=== PATIENT | male | born 1975 | race Caucasian/White ===

== ENCOUNTER 2018-06-02 21:23 | Inpatient (IN) | payer OTHER ==
[~2018-06-02] VITALS: Ht 172.7 cm; Wt 77.1 kg
--- NOTE | 2018-06-02 21:31 | NUR ---
PT TAKEN TO BED 3
[2018-06-02 21:34] VITALS: BP 148/99
--- NOTE | 2018-06-02 21:35 | NUR ---
PT PRESENTS TO ED WITH C/O ABDOMINAL PAIN. PT STATED PAIN START THIS AFTERNOON WITH N/V X3. DENIES PMH. PT AAO X4, GCS 15, ABLE TO SPEAK WITH FULL COMPLETE SENTENCES. PUPILS PERR;A 3/3 MM. UNABLE TO AMBULATED AT THIS TIME. DUE TO SEVERE PAIN. RESPIRATIONS EVEN AND UNLABORED, TACHYPNEA 40'S, O2 SAT 100%. SKIN WAR,/PINK/DRY, +PMSC. ABDOMEN FIRM, GARDING, HYPOACTIVE BOWEL SOUND X4. BLIND HOOKER SR, BP WNL. DR. AVITIA MADE AWARE OF PT STATUS. WILL CONTINUE TO MONITOR
--- NOTE | 2018-06-02 21:52 | NUR ---
Dr. Díaz evaluating patient at bedside.
[2018-06-02] MEDS ORDERED: ONDANSETRON 4 MG/2 ML VIAL IVP ONE (22:00)
[2018-06-02] MEDS ORDERED: MORPHINE SULFATE 2 MG/ML SYR IVP ONE (22:00)
[2018-06-02 22:11] LABS: HEMATOCRIT 50.5 % (36-52); HEMOGLOBIN 17.1 g/dL (12.0-18.0); MEAN CORPUSCULAR HEMOGLOBIN 30 pg (27-31); MEAN CORPUSCULAR HGB CONC 34 g/dL (33-37); MEAN CORPUSCULAR VOLUME 88.6 fL (80-94); PLATELET COUNT (AUTO) 289 K/uL (140-450); RED BLOOD CELL COUNT(AUTO) 5.69 MIL/uL (4.20-6.10); RED CELL DISTRIBUTION WIDTH 12.8 % (11.6-13.7)
--- NOTE | 2018-06-02 22:14 | NUR ---
PT TAKEN TO CT
[2018-06-02 22:22] LABS: ANION GAP 19.2 (8-16); CARBON DIOXIDE 23.1 mmol/L (21-32); CREATININE 1.1 mg/dL (0.7-1.3); POTASSIUM 3.3 mmol/L (3.5-5.1)
[2018-06-02 22:26] LABS: LYMPHOCYTES % (MANUAL) 0 % (20-46); MONOCYTES % (MANUAL) 3 % (5-12)
--- NOTE | 2018-06-02 22:29 | NUR ---
PT BACK FROM CT. STATED PAIN NOT RELIEVED, ADORE WHITLEY MADE AWARE
[2018-06-02 22:30] LABS: PROTHROMBIN TIME 12.2 secs (10.8-13.4)
[2018-06-02 22:36] LABS: ALBUMIN 4.4 g/dL (3.4-5.0); TOTAL BILIRUBIN 4.8 mg/dL (0.0-1.0)
[2018-06-02] MEDS ORDERED: NACL 0.9% 2,500 ML IV ONE (22:40)
[2018-06-02] MEDS ORDERED: KETAMINE 10 MG/ML UD SYR **ER IVP ONE (22:40)
[2018-06-02] MEDS ORDERED: CLINDAMYCIN 900 MG in DEXTROSE 5% 100 ML IV ONE (22:40)
[2018-06-02] MEDS ORDERED: MIDAZOLAM 2 MG/2 ML VIAL IVP ONE (22:50)
[2018-06-02] MEDS ORDERED: CLINDAMYCIN 900 MG/6 ML VIAL IV ONE (22:53)
--- NOTE | 2018-06-02 23:07 | NUR ---
PT UNABLE TO URINATE AT THIS TIME. NO UA SPECIMEN COLLECT. DR. AVITIA MADE AWARE
[2018-06-02] MEDS ORDERED: fentaNYL 0.05 MG/ML VIAL IVP ONE (23:15)
[2018-06-02] MEDS ORDERED: DOCUSATE SODIUM 100 MG GELCAP PO PRN (23:15)
[2018-06-02] MEDS ORDERED: NACL 0.9% 500 ML IV ONE (23:15)
[2018-06-02] MEDS ORDERED: ACETAMINOPHEN 325 MG TAB PO PRN (23:15)
[2018-06-02] MEDS ORDERED: ONDANSETRON 4 MG/2 ML VIAL IM/IVP PRN (23:15)
[2018-06-02] MEDS ORDERED: NACL 0.9% 1,000 ML IV SCH (23:15)
[2018-06-02] MEDS ORDERED: NACL 0.9% 1,000 ML IV ONE (23:15)
[2018-06-02] MEDS ORDERED: fentaNYL 0.05 MG/ML VIAL ONE (23:22)
[2018-06-02] MEDS ORDERED: KETOROLAC 30 MG/ML VIAL IVP PRN (23:25)
--- NOTE | 2018-06-02 23:31 | NUR ---
PT GCS 15, PT DESATURATED WHILE SLEEPING, PLACED ON O2 2L/M. PAIN RELIEVED AT THIS TIME. VSS, WILL CONTINUE TO MONITOR
[2018-06-03] MEDS ORDERED: KETOROLAC 30 MG/ML VIAL IM SCH
[2018-06-03] MEDS ORDERED: PIPERACILLIN/TAZOBACTAM 3.375 GM in DEXTROSE 5% 50 ML IV SCH ×2
[2018-06-03 00:01] LABS: CHOL/HDL RATIO 4.2 (1-4.5); FREE T4 (FREE THYROXINE) 1.42 ng/dL (0.76-1.46); MAGNESIUM 1.9 mg/dL (1.8-2.4); PHOSPHORUS 2.3 mg/dL (2.5-4.9); THYROID STIMULATING HORMONE 1.14 uIU/mL (0.34-3.74)
[2018-06-03] MEDS: MORPHINE SULFATE 2 MG/ML SYR IVP PRN ×3 (00:03→10:21)
[2018-06-03] MEDS ORDERED: PIPERACILLIN/TAZOBACTAM 3.375 GM VIAL IV ONE ×2 (00:12→04:56)
--- NOTE | 2018-06-03 00:16 | NUR ---
Patient will be admitted to care of . Admited to TELE. Will go to room 111B. Belongings list completed. Report to TANIKA ARITA.
--- NOTE | 2018-06-03 00:30 | NUR ---
ADMITTED THIS 42 YEAR OLD MALE FROM ER PER SANDRA WITH CC OF ABDOMINAL PAIN X1 DAY, ASSESSMENT DONE, VITAL SIGNS SLIGHTLY ELEVATED, DENIES CHEST PAIN, COMPLAINING OF ABDOMINAL PAIN 8/10, WILL MEDICATE PRN, ABDOMEN TENDER TO PALPATION, POSITIVE BOWEL SOUNDS, DR LIAO AT BEDSIDE TALKING TO PT AND FAMILY, MAINTAINED ON NPO EXCEPT MEDS ORDERED, ZOSYN IVPB INFUSING, PT ORIENTED TO ROOM AND CALL LIGHT, PLAN OF CARE DISCUSSED BY DR LIAO WITH PT AND , SAFETY MEASURES IN PLACE, CALL LIGHT WITHIN REACH.
[2018-06-03 00:40] VITALS: BP 157/100
[2018-06-03 01:21] LABS: BARBITURATE, URINE NEG. ng/ml (NEG <=200); BENZODIAZEPINE, URINE POS. ng/mL (NEG <=200); CANNABINOID, URINE POS. ng/mL (NEG <=50); COCAINE, URINE NEG. ng/mL (NEG <=300); OPIATE, URINE NEG. ng/mL (NEG <=2000); PHENCYCLIDINE SCREEN,URINE NEG. ng/mL (NEG <=25)
[2018-06-03 01:52] LABS: APPEARANCE,URINE CLEAR (CLEAR); BLOOD, URINE NEGATIVE (NEGATIVE); COLOR,URINE YELLOW (YELLOW); LEUKOCYTE ESTERASE ,URINE NEGATIVE (NEGATIVE); NITRITE, URINE NEGATIVE (NEGATIVE); PH,URINE 6.5 (5.0-9.0); UGLUCOSE 2+ (NEGATIVE)
[2018-06-03 01:54] LABS: BILIRUBIN,URINE SMALL (NEGATIVE)
[2018-06-03 01:55] LABS: RBC,URINE 0-5 (RARE) /HPF (0-5); WBC,URINE 0-5 (RARE) /HPF (0-5)
[2018-06-03] MEDS ORDERED: HYDROmorphone 1 MG/ML AMP IVP SCH (02:00)
[2018-06-03] MEDS ORDERED: LORazepam 2 MG/ML VIAL IVP SCH (02:00)
--- NOTE | 2018-06-03 02:19 | NUR ---
PT SLEEPING AFTER ATIVAN WAS GIVEN, K-RIDER 20 MEQ STARTED FOR K LEVEL OF 3.3, PT SLEEPING, NO SIGNS OF RESP DISTRESS, MONITORED CLOSELY.
[2018-06-03] MEDS ORDERED: KCL 20 MEQ/WATER INJ PREMIX 100 ML IV SCH (02:30)
[2018-06-03] MEDS: DEXT 5% /NACL 0.9% 1,000 ML IV SCH ×3 (03:03→15:25)
--- NOTE | 2018-06-03 03:20 | NUR ---
PT AWAKE COMPLAINING OF ABDOMINAL PAIN, MEDICATED PRN WITH DILAUDID IVP ORDERED, IVF CHANGED TO D5 NS AT 150ML/H, MONITORED CLOSELY.
[2018-06-03 03:30] VITALS: BP 145/92
[2018-06-03] MEDS ORDERED: PIPERACILLIN/TAZOBACTAM 3.375 GM in DEXTROSE 5% 50 ML IV ONE (05:00)
--- NOTE | 2018-06-03 06:00 | NUR ---
PT COMPLAINING OF PAIN, MEDICATED PRN WITH MORPHINE IVP, PT VOIDED FREELY USING URINAL WITH 300ML LIGHT BRADLEY COLORED URINE OUTPUT, IVF INFUSING WELL, MONITORED CLOSELY.
[2018-06-03 07:07] LABS: BASOPHILS # (AUTO) 0.1 K/uL (0.00-0.22); BASOPHILS % (AUTO) 0.4 % (0.0-2.0); HEMATOCRIT 46.1 % (36-52); HEMOGLOBIN 15.4 g/dL (12.0-18.0); LYMPHOCYTES # (AUTO) 0.5 K/uL (2.0-11.5); LYMPHOCYTES % (AUTO) 4.2 % (20.5-51.1); MEAN CORPUSCULAR HEMOGLOBIN 30 pg (27-31); MEAN CORPUSCULAR HGB CONC 33 g/dL (33-37); MEAN CORPUSCULAR VOLUME 90.9 fL (80-94); MONOCYTES # (AUTO) 0.8 K/uL (0.8-1.0); MONOCYTES % (AUTO) 6.4 % (1.7-9.3); NEUTROPHILS # (AUTO) 11.5 K/uL (1.8-7.7); PLATELET COUNT (AUTO) 221 K/uL (140-450); RED BLOOD CELL COUNT(AUTO) 5.07 MIL/uL (4.20-6.10); RED CELL DISTRIBUTION WIDTH 13.1 % (11.6-13.7); WHITE BLOOD COUNT (AUTO) 12.9 K/uL (4.8-10.8)
[2018-06-03 07:12] LABS: MAGNESIUM 1.7 mg/dL (1.8-2.4); PHOSPHORUS 3.5 mg/dL (2.5-4.9)
[2018-06-03 07:16] LABS: ANION GAP 15.2 (8-16); CARBON DIOXIDE 22.6 mmol/L (21-32); CREATININE 0.8 mg/dL (0.7-1.3); POTASSIUM 3.8 mmol/L (3.5-5.1)
--- NOTE | 2018-06-03 07:20 | NUR ---
PT AWAKE, NO SIGNS OF DISTRESS, BEDSIDE REPORT GIVEN TO RN ZEENAT FOR CONTINUITY OF CARE.
--- NOTE | 2018-06-03 07:21 | NUR ---
RECEIVED BEDSIDE REPORT FROM PM NURSE TANIKA. PT DROWSY, BUT VERBALLY RESPONSIVE. RESPIRATIONS EVEN & NONLABORED. CALL LIGHT WITHIN REACH.
[2018-06-03] MEDS: KETOROLAC 30 MG/ML VIAL IM SCH ×3 (07:44→21:02)
[2018-06-03] MEDS: HYDROcodone/APAP 7.5/325 MG 1 TAB PO PRN ×2 (07:55→15:25)
[2018-06-03 08:00] VITALS: BP 147/99
[2018-06-03] MEDS: SODIUM PHOS / POTASSIUM PHOS 1 PKT PDR PO SCH ×2 (08:58→21:03)
--- NOTE | 2018-06-03 08:58 | NUR ---
PATIENT HAS BEEN SCREENED AND CATEGORIZED HIGH NUTRITION RISK. PATIENT WILL BE SEEN WITHIN 1-2 DAYS OF ADMISSION. 06/03/18 06/04/[address]
--- NOTE | 2018-06-03 11:21 | NUR ---
DR DUVALL AT BEDSIDE SPEAKING WITH PT & FAMILY. PT ALERT, SITTING UP IN BED, IRRITABLE WITH GAURDING TO ABD, RESPIRATIONS EVEN & NONLABORED. CALL LIGHT WITHIN REACH. DR DUVALL NOTIFIED OF PERSISTENT ABD PAIN.
[2018-06-03 12:00] VITALS: BP 138/90
[2018-06-03] MEDS: HYDROmorphone 1 MG/ML AMP IVP PRN ×3 (12:07→22:22)
--- NOTE | 2018-06-03 12:23 | NUR ---
06/03/18 RD INITIAL ASSESSMENT COMPLETED PLEASE REFER TO NUTRITION ASSESSMENT UNDER CARE ACTIVITY FOR ESTIMATED NUTRITIONAL NEEDS. 1. CONTINUE NPO DIET, UNTIL MEDICALLY APPROPRIATE TO BEGIN NUTRITION. 2. WHEN/IF PATIENT MEDICALLY STABLE TO BEGIN NUTRITION, CONSIDER ADVANCE DIET TOLERATED TO REGULAR. 3. WHEN/IF PATIENT MEDICALLY STABLE TO BEGIN NUTRITION, CONSIDER PROVIDING ENSURE MAX PROTEIN QID. 4. RD TO FOLLOW-UP 3-5 DAYS, MODERATE RISK PATO ROBB RD
[2018-06-03 16:00] VITALS: BP 137/95
[2018-06-03] MEDS: LACTATED RINGERS 1,000 ML IV SCH (16:49)
--- NOTE | 2018-06-03 18:00 | NUR ---
DR HEMPHILL AT BEDSIDE ASSESSING PT. PT IS DROWSY, RESPONDS APPROPRIATELY TO QUESTIONS, RESPIRATIONS EVEN & NONLABORED IN ROOM AIR. LEFT AC IV INTACT WITH ONGOING LR @ 125ML/HR, RIGHT AC IV INTACT & ASYMPTOMATIC. CALL LIGHT WITHIN REACH.
--- NOTE | 2018-06-03 19:25 | NUR ---
OBTAINED CONSENT FROM PT FOR ERCP WITH SPHINCTERECTOMY & STENTING/STONE REMOVAL. PT VERBALIZED UNDERSTANDING OF PROCEDURE. BEDSIDE REPORT GIVEN TO PM NURSE JORGE.
--- NOTE | 2018-06-03 19:26 | NUR ---
RECEIVED BEDSIDE REPORT FROM AM NURSE.PT AWAKE ALERT,O X 4. ON TELE. PT IN PAIN 02/04 WILL MEDICATE. VERBALLY RESPONSIVE. RESPIRATIONS EVEN & NONLABORED. CALL LIGHT WITHIN REACH.
[2018-06-03 20:00] VITALS: BP 125/81
--- NOTE | 2018-06-03 21:00 | NUR ---
DR. LEY WITH PT AT BEDSIDE.
--- NOTE | 2018-06-03 22:10 | NUR ---
ENDORSED PT TO ICU. ON LR AT 125ML/HR. IN PAIN AT 02/04. PER DR. LEY, AND DR. LIAO PT @ ICU FOR PAIN MGT.
--- NOTE | 2018-06-03 22:28 | NUR ---
RECEIVED REPORT FROM SCHEDULER CONVEYOR RN, JORGE, FOR CONTINUITY OF CARE. PT IS AAOX4, PAIN OF 8/10 IN ABDOMINAL AREA, DILAUDED 1MG GIVEN IV PUSH. DENIES NAUSE/NUMBNESS AND TINGLING. PT IS ON ROOM AIR, ST ON AUTOPSY PATHOLOGIST, VSS, AFEBRILE WITH TEMP 98.2, DC=833/76, HR 108-115, RR=24, O2 SAT=96%.LUNG SOUND CLEAR ON BILATERAL UPPER AND LOWER LOBES, BOWEL SOUNDS ACTIVE. NPO STATUS EXCEPT FOR MEDS.FULL CODE, NKA. CONTINENT OF BOWEL AND BLADDER. SKIN IS INTACT AND NORMAL IN COLOR. 18 GAUGE PIV ON BOTH RIGHT AC AND LEFT AC. LEFT AC INFUSING LR AT 125 ML/HR. FAMILY AT BEDSIDE. DX WITH PANCREATITIS AND SEVERE SEPSIS. CALL LIGHT WITHIN REACH HOB ELEVATED ABOVE 30 DEG. PT ABLE TO ASSIST IN REPOSITIONING.
--- NOTE | 2018-06-03 23:45 | NUR ---
PT SLEEPING, BUT EASILY AROUSABLE. STATED PAIN IS REDUCED RATING 4/10. DG=154/80, HR 106-111, O2 SAT=96-98%, RR=24.
[2018-06-04] VITALS (10 sets, daily range): BP systolic 121–145; BP diastolic 68–98
[2018-06-04] MEDS: PIPER/TAZO 3.375GM/D5W PREMIX 50 ML IV SCH ×4 (00:04→17:12)
[2018-06-04] MEDS: LACTATED RINGERS 1,000 ML IV SCH ×4 (00:04→20:51)
[2018-06-04] MEDS: HYDROcodone/APAP 7.5/325 MG 1 TAB PO PRN (00:55)
--- NOTE | 2018-06-04 01:00 | NUR ---
PT IS AWAKE IN BED, HOB ELEVATED ABOVE 45 DEG. NORCO GIVEN, PT RATED PAIN 4-5/10, SAYS INTENSITY OF PAIN "COMES AND GOES". BP 131/87, PX=457, O2 SAT=98, RR=22. ABX ADMINISTRATION COMPLETED, LR INFUSING AT 125ML/HR INTO LEFT AC 18 GAUGE.
--- NOTE | 2018-06-04 01:17 | NUR ---
PT SITTING UP AT BEDSIDE, LEGS DANGLING. URINE OUTPUT OF 175ML. URINE IS RED-ORANGE IN COLOR, MALODOROUS. HR =120-125 WHILE SITTING. PT STATED PAIN IS WORSE WHEN LAYING DOWN AND ROTATING ON THE SIDES, PAIN ALLEVIATED BY SITTING UP TEMPORARILY.
--- NOTE | 2018-06-04 01:20 | NUR ---
PT LAYING BACK IN BED, CURRENTLY HR= 115-118 BPM. ELEVATED THE LOWER LEGS IN BED, PT IN SUPINE POSITION HOB ELEVATED 30 DEG.
--- NOTE | 2018-06-04 02:29 | NUR ---
SITTING UP ON SIDE OF BED, LEGS DANGLING, PT STATED PAIN SUBSIDES WHEN SITTING UP. AFEBRILE, 98.3 BUT PT STATED HE FEELS WARM. COLD WASHCLOTH PLACED ON BACK OF NECK. BP 136/80, HR= 120-123, O2 SATS = 95, RR=24.
--- NOTE | 2018-06-04 02:39 | NUR ---
PT AWAKE, LAYING IN BED SUPINE POSITION. DJ=381. PT STATED PAIN IS TOLERABLE.
--- NOTE | 2018-06-04 02:57 | NUR ---
PT STATED THAT HE FEELS PHLEGM BUILDING UP IN HIS THROAT HE IS LAYING IN BED. PT CURRENTLY SITTING UP ON SIDE OF BED. DENIES CHEST PAIN, BUT SITES MILD PAIN IN THROAT. PT REQUESTS BENADRYL OR DECONGESTANT STATING THATS WHAT HE USUALLY TAKES AT HOME. CALLED DR. LIAO AND UPDATED ON PT CONDITION, AWAITING NEW ORDER(S).
[2018-06-04] MEDS ORDERED: guaiFENesin 600 MG TABER PO PRN (03:00)
[2018-06-04] MEDS: HYDROmorphone 1 MG/ML AMP IVP PRN ×6 (03:12→21:41)
--- NOTE | 2018-06-04 04:22 | NUR ---
ORAL CARES/MOUTH MOISTURIZER PROVIDED TO PT AT BEDSIDE. PT RATES PAIN AT 5/10 AFTER DILAUDED ADMINISTRATION.
--- NOTE | 2018-06-04 05:10 | NUR ---
LAB A BESIDE TO COLLECT BLOOD.
[2018-06-04 05:27] LABS: BASOPHILS % (AUTO) 0.1 % (0.0-2.0); EOSINOPHILS % (AUTO) 0.1 % (0.0-4.0); HEMATOCRIT 47.7 % (36-52); HEMOGLOBIN 15.8 g/dL (12.0-18.0); LYMPHOCYTES # (AUTO) 1.2 K/uL (2.0-11.5); LYMPHOCYTES % (AUTO) 7.2 % (20.5-51.1); MEAN CORPUSCULAR HEMOGLOBIN 30 pg (27-31); MEAN CORPUSCULAR HGB CONC 33 g/dL (33-37); MEAN CORPUSCULAR VOLUME 90.4 fL (80-94); MONOCYTES % (AUTO) 6.5 % (1.7-9.3); NEUTROPHILS # (AUTO) 13.8 K/uL (1.8-7.7); NEUTROPHILS % (AUTO) 86.1 % (42.2-75.2); PLATELET COUNT (AUTO) 220 K/uL (140-450); RED BLOOD CELL COUNT(AUTO) 5.28 MIL/uL (4.20-6.10); RED CELL DISTRIBUTION WIDTH 13.5 % (11.6-13.7)
--- NOTE | 2018-06-04 06:21 | NUR ---
RECEIVED CALL FROM DR. DUVALL OF NEW ORDER TO INCREASE LR TO 150ML/HR, CARRIED OUT.
[2018-06-04 06:30] LABS: POTASSIUM 3.8 mmol/L (3.5-5.1)
[2018-06-04 06:31] LABS: ANION GAP 17.3 (8-16); CARBON DIOXIDE 22.5 mmol/L (21-32); CREATININE 0.8 mg/dL (0.7-1.3)
[2018-06-04 06:39] LABS: MAGNESIUM 1.5 mg/dL (1.8-2.4); PHOSPHORUS 2.8 mg/dL (2.5-4.9)
--- NOTE | 2018-06-04 06:56 | NUR ---
SPOKE WITH DR. DUVALL INFORMED OF ABNORMAL LABS, ELEVATED HR GOING FROM 120'S to 140's. INFORMED PT IS IN PAIN AND WILL GIVE DILAUDED. NO NEW ORDERS AT THIS TIME.
[2018-06-04 07:04] LABS: TOTAL BILIRUBIN 5.1 mg/dL (0.0-1.0)
[2018-06-04 07:05] LABS: ALBUMIN 2.8 g/dL (3.4-5.0)
--- NOTE | 2018-06-04 07:36 | NUR ---
PROVIDED BESIDE REPORT TO MORNING SHIFT RN, ENDORSED DILAUDED GIVEN 0710 PAIN 04/06, UPDATED ON PT CONDITION OF HR RUNNING SINUS TACHYCARDIC 120-130'S, HIGHEST OF NP=711. LR RUNNING AT 150ML/HR. AND ERCP SCHEDULED FOR 0830AM. PT AAO4.
--- NOTE | 2018-06-04 07:40 | NUR ---
RECEIVED REPORT FROM EMERGENCY VETERINARY ASSISTANT RN. PT IS RESTING ON BED, AAOX4. ABLE TO MAKE NEEDS KNOWN AND FOLLOWS COMMANDS. TEMP 99.4. SINUS TACHYCARDIA ON MONITOR. S1 S2 HEARD. PT IS ON ROOM AIR. NO SOB NOTED. BREATHING EVEN AND UNLABORED. LUNGS SOUND CLEAR BILATERALLY. ABDOMEN ROUND, DISTENDED. C/O ABDOMINAL PAIN 3/10. PT STATED PAIN IS TOLERABLE AT THIS TIME. PERIPHERAL IVS G18 TO RIGHT AND LEFT ANTECUBITAL ASYMPTOMATIC, PATENT AND INTACT, PT IS RECEIVING IV FLUID LR AT 150 ML/HR. PT IS CONTINENT BOWEL AND BLADDER. SKIN IS INTACT, DRY AND WARM TO TOUCH. ABLE TO MOVE ALL EXTREMITIES. BED IN LOWEST POSITION AND CALL LIGHT WITHIN REACH. WILL CONTINUE TO MONITOR.
--- NOTE | 2018-06-04 07:55 | NUR ---
DR. VILLEDA AND RESIDENT GROUP IN TO SEE PT. WILL FOLLOW UP ON ORDERS.
[2018-06-04] MEDS ORDERED: MIDAZOLAM 2 MG/2 ML VIAL ONE (08:11)
[2018-06-04] MEDS ORDERED: fentaNYL 0.05 MG/ML VIAL ONE (08:12)
[2018-06-04 08:13] LABS: HEPATITIS A ANTIBODY IGM Negative (Negative); HEPATITIS B CORE AB TOTAL Negative (Negative); HEPATITIS B SURFACE ANTIBODY Non Reactive (.); HEPATITIS B SURFACE ANTIGEN Negative (Negative)
[2018-06-04] MEDS ORDERED: PROPOFOL 200 MG/20 ML VIAL IV ONE (08:20)
[2018-06-04 08:44] LABS: BILIRUBIN,DIRECT 2.8 mg/dL (0.0-0.3)
[2018-06-04] MEDS: SODIUM PHOS / POTASSIUM PHOS 1 PKT PDR PO SCH (09:00)
--- NOTE | 2018-06-04 09:05 | NUR ---
PT BACK FROM OR, ERCP DONE. PT IS STABLE, TEMP 99.2, VSS. PT IS RESTING, NO S/SX OF ACUTE DISTRESS AT THIS TIME.
--- NOTE | 2018-06-04 09:15 | NUR ---
FAMILY AT BEDSIDE. UPDATES GIVEN ON PT'S CONDITION. PT IS RESTING COMFORTABLY. WILL CONTINUE TO MONITOR.
--- NOTE | 2018-06-04 09:34 | NUR ---
PT SEEN BY DR. LEY. WILL FOLLOW UP WITH NEW ORDERS.
--- NOTE | 2018-06-04 09:40 | NUR ---
RESIDENT PHYSICIAN DR. DUVALL IN TO SEE AND EXAMINE PT, AWARE OF INCREASED HR 125. HOLD PO MEDS FOR NOW PER DR. DUVALL. WILL FOLLOW UP WITH NEW ORDERS.
[2018-06-04] MEDS ORDERED: PROBIOTIC SCREEN 1 EA MISC MC PRN (11:25)
--- NOTE | 2018-06-04 11:50 | NUR ---
PT C/O DRY THROAT AND REQUESTED ICE CHIPS. DR. DUVALL MADE AWARE. PER DR. DUVALL, KEEP PT STILL NPO, NO ICE CHIPS AT THIS TIME. PT AND FAMILY MADE AWARE, VERBALIZED UNDERSTANDING.
--- NOTE | 2018-06-04 12:00 | NUR ---
PT'S TEMP 100.0. COOLING MEASURES IN PLACE. WILL CONTINUE TO MONITOR.
[2018-06-04] MEDS ORDERED: diphenhydrAMINE 50 MG/ML VIAL IVP SCH (13:05)
--- NOTE | 2018-06-04 13:15 | NUR ---
BENADYL 25MG GIVEN ORDERED.
--- NOTE | 2018-06-04 15:00 | NUR ---
PT C/O EPIGASTRIC PAIN OF 10/10 AND REQUESTED MORE FREQUENT PAIN MEDICATION. RESIDENT PHYSICIAN DR. RUIZ MADE AWARE OF PT'S REQUEST. WILL FOLLOW UP ON ORDERS.
[2018-06-04] MEDS: HYDROmorphone 1 MG/ML AMP IVP SCH ×2 (15:08→15:15)
--- NOTE | 2018-06-04 15:08 | NUR ---
PRN DILAUDID ADMINISTERED ORDERED.
--- NOTE | 2018-06-04 15:15 | NUR ---
RESIDENT PHYSICIAN DR. RUIZ ORDERED ADDITIONAL DILAUDID 1 MG X1. MEDICATION NOT ADMINISTERED. PT STATED HE FEELS BETTER AND PAIN IS REDUCED TO 5/10 AND DOES NOT NEED AN ADDITIONAL DOSE AT THIS TIME. PT REQUESTED IF MEDICATION FREQUENCY CAN BE REDUCED TO Q3H. DR. RUIZ MADE AWARE. WILL FOLLOW UP WITH NEW ORDERS.
--- NOTE | 2018-06-04 15:40 | NUR ---
EKG BEING DONE AT BEDSIDE. NO S/SX OF ACUTE DISTRESS NOTED AT THIS TIME. WILL CONTINUE TO MONITOR.
--- NOTE | 2018-06-04 15:45 | NUR ---
DR. RUIZ MADE AWARE OF EKG RESULT BY CHARGE NURSE. WILL FOLLOW UP ON ORDERS.
[2018-06-04] MEDS ORDERED: LORazepam 2 MG/ML VIAL IVP PRN ×2 (15:55)
--- NOTE | 2018-06-04 16:56 | NUR ---
HR IS IN HIGH 130'S ALTHOUGH PT IS SLEEPING AT THIS TIME. DR. RUIZ MADE AWARE. TROPONIN <0.017. WILL FOLLOW UP AND CONTINUE TO MONITOR. Addendum: 06/04/18 at 1719 by Oneil Pradhan RN DR. RUIZ AWARE OF PT'S TEMP 100.1.
--- NOTE | 2018-06-04 17:30 | NUR ---
DR. RUIZ ORDERED METOPROLOL IV FOR INCREASED HR. PHARMACY UNAVAILABLE AT THIS TIME AND MEDICATIONS UNVERIFIED. CREDIT COLLECTION ASSOCIATE MS. HAIR MADE AWARE. WILL FOLLOW UP.
[2018-06-04] MEDS ORDERED: METOPROLOL 5 MG/5 ML VIAL IVP SCH (18:30)
--- NOTE | 2018-06-04 18:40 | NUR ---
PT IS ASLEEP AT THIS TIME. CONSENT FOR CT ABD/PELVIS W/ CONTRAST SIGNED BY AT BEDSIDE. DR. BELTRE IN TO SEE AND EXAMINE PT, AND TALKED TO PT'S .
[2018-06-04] MEDS ORDERED: MAG SULF 2000 MG/WATER PREMIX 100 ML IV SCH (19:00)
--- NOTE | 2018-06-04 19:10 | NUR ---
RECEIVED REPORT FROM MORNING SHIFT RN. PATIENT AAOX4, VERBALLY RESPONSIVE, ABLE TO MAKE NEEDS KNOWN AND FOLLOWS COMMANDS. TEMP 101.0. APPLIED COOLING MEASURE. SINUS TACHYCARDIA ON MONITOR WITH HR 123 NOTED. BILATERAL LUNGS SOUND CLEAR, NO SOB NOTED. PATIENT ON O2 2L/M VIA NC, O2 SAT 95% NOTED. NO ACUTE DISTRESS NOTED. ROUND ABDOMEN NOTED. CHRONIC ABDOMINAL PAIN 4/10 NOTED. PERIPHERAL IV TO RIGHT AND LEFT AC, ASYMPTOMATIC, PATENT AND INTACT, RUNNING WITH IV FLUID LR AT 150 ML/HR. SKIN IS INTACT, DRY AND WARM TO TOUCH. HOB ELEVATED, BED IN LOWER POSITION. CALL LIGHT WITHIN REACH. WILL CONTINUE TO MONITOR.
--- NOTE | 2018-06-04 19:30 | NUR ---
REPORT GIVEN TO TELEGRAPH MECHANIC RN FOR CONTINUITY OF CARE.NO ACUTE DISTRESS NOTED AT THIS TIME.
--- NOTE | 2018-06-04 19:30 | NUR ---
AT BEDSIDE TO CHECK THE PATIENT, WILL FOLLOW ORDERS.
[2018-06-04] MEDS: ACETAMINOPHEN 325 MG SUPP RC PRN (19:36)
[2018-06-04] MEDS ORDERED: LORazepam 2 MG/ML VIAL IM/IVP PRN (20:30)
--- NOTE | 2018-06-04 21:00 | NUR ---
PATIENT URINATED TO URINAL AT THIS TIME, 100ML ORANGE COLOR URINE NOTED. DENIES PAIN ON URINATION NOTED.
--- NOTE | 2018-06-04 21:40 | NUR ---
ADMINISTERED PRN PAIN MEDICATION ORDERED. ABDOMINAL PAIN 9/10 NOTED.
--- NOTE | 2018-06-04 21:45 | NUR ---
DR. CASTANO AT BEDSIDE TO ASSESS THE PATIENT, WILL FOLLOW THE ORDER.
--- NOTE | 2018-06-04 23:20 | NUR ---
PATIENT TO CT SCAN WITH CONTRAST. NO ACUTE RESP DISTRESS AT THIS TIME.
[2018-06-05] VITALS (12 sets, daily range): BP systolic 117–153; BP diastolic 69–97
--- NOTE | 2018-06-05 00:15 | NUR ---
RECEIVED PHONE CALL FROM [facility], PATIENT WILL BE ON HIDA TEST ON 0900 AM TODAY. FOR THE TEST, PATIENT NEEDS TO BE NPO, NO OPIOID MED FROM NOW. NOTIFIED DR. BELTRE.
[2018-06-05] MEDS: PIPER/TAZO 3.375GM/D5W PREMIX 50 ML IV SCH (00:19)
[2018-06-05] MEDS ORDERED: ALBUTEROL SULFATE/IPRATROPIU 3 ML SOL IH PRN (00:40)
--- NOTE | 2018-06-05 01:00 | NUR ---
ADMINISTERED SCHEDULED IV ABX. WILL CONTINUE TO MONITOR.
--- NOTE | 2018-06-05 01:08 | NUR ---
ATTEMPTED ABG TWICE. COMMUNICATED TO DR BELTRE. DR ASKED TO REATTEMPT IN THE MORNING.
[2018-06-05] MEDS ORDERED: LORazepam 2 MG/ML VIAL IVP SCH ×3 (02:00→07:00)
[2018-06-05] MEDS: LACTATED RINGERS 1,000 ML IV SCH ×4 (02:35→23:55)
[2018-06-05] MEDS ORDERED: metroNIDAZOLE 500 MG/NS PREMIX 100 ML IV SCH ×3 (03:00→13:00)
[2018-06-05] MEDS ORDERED: LEVOFLOXACIN 750 MG/D5W PREMIX 150 ML IV SCH (03:00)
--- NOTE | 2018-06-05 03:10 | NUR ---
ADMINISTERED FLAGYL ORDERED. NO REACTION NOTED. Addendum: 06/05/18 at 0433 by Janet Child RN AT BEDSIDE TO CHECK THE PATIENT, WILL FOLLOW ORDERS.
[2018-06-05] MEDS ORDERED: ACETAMINOPHEN 650 MG SUPP RC ONE ×2 (03:26→20:25)
[2018-06-05] MEDS: ACETAMINOPHEN 325 MG SUPP RC PRN ×2 (03:29→21:35)
--- NOTE | 2018-06-05 03:30 | NUR ---
ADMINISTERED TYLENOL 650MG SUPPOSITORY ORDERED FOR TEMP ABOVE 100.2. APPLIED COOLING MEASURE. WILL CONTINUE TO MONITOR.
--- NOTE | 2018-06-05 04:00 | NUR ---
ADMINISTERED LEVAQUIN IVPB ORDERED, NO REACTION NOTED.
[2018-06-05 05:12] LABS: HEMATOCRIT 41.2 % (36-52); HEMOGLOBIN 13.8 g/dL (12.0-18.0); MEAN CORPUSCULAR HEMOGLOBIN 30 pg (27-31); MEAN CORPUSCULAR HGB CONC 34 g/dL (33-37); MEAN CORPUSCULAR VOLUME 89.9 fL (80-94); PLATELET COUNT (AUTO) 205 K/uL (140-450); RED BLOOD CELL COUNT(AUTO) 4.59 MIL/uL (4.20-6.10); WHITE BLOOD COUNT (AUTO) 14.4 K/uL (4.8-10.8)
[2018-06-05] MEDS ORDERED: KETOROLAC 15 MG/ML VIAL ONE (05:34)
[2018-06-05 06:00] LABS: ANION GAP 14.9 (8-16); CARBON DIOXIDE 24.5 mmol/L (21-32); CREATININE 0.9 mg/dL (0.7-1.3); POTASSIUM 3.4 mmol/L (3.5-5.1)
[2018-06-05] MEDS ORDERED: KETOROLAC 15 MG/ML VIAL IVP SCH (06:00)
--- NOTE | 2018-06-05 06:00 | NUR ---
PATIENT COMPLAINT ABOUT PAIN, NOTIFIED DR. BELTRE, RECEIVED TORADOL 15MG IVP. ADMINISTERED MEDICATION ORDERED.
[2018-06-05 06:03] LABS: PHOSPHORUS 1.7 mg/dL (2.5-4.9)
[2018-06-05 06:11] LABS: LYMPHOCYTES % (MANUAL) 7 % (20-46); MONOCYTES % (MANUAL) 6 % (5-12)
--- NOTE | 2018-06-05 07:30 | NUR ---
RECEIVED REPORT FROM COSTUME DESIGN TEACHER RN AT BEDSIDE. PATIENT AAOX4, ABLE TO FOLLOW COMMANDS AND MAKE NEEDS KNOWN. NO S/S OF DISTRESS, CLEAR LUNG SOUNDS LEATHA., ON RA, O2 SAT 94%. SINUS TACHYCARDIA ON MONITOR WITH HR 129 NOTED. SOFT ROUND ABDOMEN WITHIN ACTIVE BOWEL SOUNDS, SEVERE PAIN TO ABDOMEN NOTED, 10/10, WILL MEDICATED. CONTIENT WITH B&B'S, ABLE TO USE BSC, SKIN IS INTACT, WARM AND DRY TO TOUCH, PERIPHERAL IV TO RIGHT AND LEFT AC, 18GA, PATENT, RUNNING WITH LR AT 100 ML/HR. ABLE TO MOVE ALL EXTREMITIES, EXPLAINED POC TO PT, PT VERBALIZED UNDERSTANDING, HOB ELEVATED, SAFETY MEASURE IN PLACE, CALL LIGHT WITHIN REACH. WILL CONTINUE TO MONITOR.
[2018-06-05] MEDS: KETOROLAC 15 MG/ML VIAL IVP PRN (08:37)
[2018-06-05] MEDS: PANTOPRAZOLE 40 MG INJ VIAL IVP SCH (08:42)
[2018-06-05] MEDS ORDERED: LACTOBACILLUS RHAMNOSUS GG 1 EACH CAP PO SCH (09:00)
[2018-06-05] MEDS ORDERED: NACL 0.9% 1,000 ML IV SCH ×2 (09:00→13:00)
--- NOTE | 2018-06-05 09:00 | NUR ---
DR. MADISON CALL AND ORDERED 1000ML/OF 0.9% NS BOLUS AND INCREASE LR IV TO 150ML/HR. GIVEN ORDERED.
--- NOTE | 2018-06-05 09:39 | NUR ---
PLACED 2L N/C WITH H20 PER DR DUVALL
--- NOTE | 2018-06-05 09:45 | NUR ---
PT REFUSED TO PUT O2 ON, RISK AND BENEFIT EXPLAINED, O2 SAT AT 95% AT THIS TIME.
--- NOTE | 2018-06-05 10:00 | NUR ---
PT IS OFF UNIT FOR HIDA SCAN
[2018-06-05] MEDS ORDERED: POTASSIUM PHOSPHATE 15 MM in NACL 0.9% 250 ML IV SCH (10:30)
--- NOTE | 2018-06-05 11:01 | NUR ---
DR. CÁRDENAS CAME IN TO SEE PT AT [facility] SCAN ROOM, ORDERED CT, WILL FOLLOW UP WITH ORDERS.
[2018-06-05] MEDS: HYDROmorphone 1 MG/ML AMP IVP PRN ×4 (11:32→21:55)
--- NOTE | 2018-06-05 11:45 | NUR ---
DR. MIX CALLED HE ODER TO HO CT SCAN OF PANCREASE AFTER HE LEARN THAT AV WHITLEY ORDER NM HIDA SCAN AND BEING DONE.
--- NOTE | 2018-06-05 12:00 | NUR ---
PT IS AT [facility], RN AT BEDSIDE, NO S/S OF DISTRESS, PAIN MEDICATION GIVEN, PT IS ASLEEP, VSS.
--- NOTE | 2018-06-05 12:50 | NUR ---
PT IS DONE WITH HIDA SCAN, PER CHARGE NURSE SUMAN, DR. MURILLO TOLD HER TO HOLD THE CT SCAN, DR. DUVALL TRYING TO GET HOLD OF DR. MURILLO TO CONFIRM THE ORDER, BUT COULD NOT GET IN TOUCH AT THIS TIME, SO HE SAID TO HOLD THE CT UNTIL FURTHER ORDER. PT IS BACK TO ROOM NOW.
--- NOTE | 2018-06-05 13:45 | NUR ---
SEEN BY DR. Nerissa HOLLAND AT BED SIDE. HE DISCUS WITH DR. COLEMAN REGARDING THE CARE AND TREATMENT.
--- NOTE | 2018-06-05 13:46 | NUR ---
DR. HOLLAND CAME IN TO SEE PATIENT AT BEDSIDE, DR. DUVALL AT BEDSIDE WELL, WILL FOLLOW UP WITH NEW ORDERS.
--- NOTE | 2018-06-05 14:00 | NUR ---
PT GETTING ANXIOUS ATTIVAN GIVEN ORDERED.
--- NOTE | 2018-06-05 14:33 | NUR ---
CONSENT SIGNED BY PATIENT FOR CT GUIDED DRAINAGE OF GALLBLADDER AND CT W/WITHOUT CONTRAST.
--- NOTE | 2018-06-05 16:04 | NUR ---
TIME OUT FOR ULTRA SOUND GUIDED DRAINAGE OF GALLBLADDER AT BEDSIDE, DR. KOHLER , JUAN J COREY AT BEDSIDE.
[2018-06-05] MEDS ORDERED: LIDOCAINE 2% 1000 MG/50 ML VIAL INJ ONE (16:15)
[2018-06-05] MEDS ORDERED: LIDOCAINE MPF 2% 100 MG/5 ML VIAL INJ SCH (16:30)
--- NOTE | 2018-06-05 16:59 | NUR ---
US GUIDED DRAINAGE OF GALLBLADDER COULD NOT DONE AT THIS TIME, DR. KOHLER WILL DO FLUOROSCOPY INSTEAD.
--- NOTE | 2018-06-05 17:15 | NUR ---
PT IS OFF UNIT TO CT ROOM VIA BED FOR FLUOROSCOPY GUIDED DRAINAGE OF GALLBLADDER. RN AND TECH AT BEDSIDE.
--- NOTE | 2018-06-05 17:30 | NUR ---
TIME OUT FOR FLUOROSCOPY GUIDED DRAINAGE OF GALLBLADDER.
[2018-06-05] MEDS: LORazepam 2 MG/ML VIAL IVP SCH ×2 (18:12→23:55)
--- NOTE | 2018-06-05 18:45 | NUR ---
PT IS BACK TO UNIT, VSS, DRAINAGE BAG IN PLACE. Addendum: 06/05/18 at 1918 by Ami Rooney RN DR. THADDEUS GILLESPIE FLUSH 10ML OF NS TO THE DRAINAGE TUBE DAILY TO KEEP THE TUBE OPEN. DR. BELTRE MADE AWARE.
--- NOTE | 2018-06-05 18:50 | NUR ---
DR. GUTIERRES CAME IN TO SEE PT AT BEDSIDE, NO NEW ORDER AT THIS TIME.
--- NOTE | 2018-06-05 19:18 | NUR ---
REPORT GIVEN TO FLOWER MACHINE OPERATOR NURSE FOR CONTINUE OF CARE, PT IS ASLEEP IN BED, NO S/S OF DISTRESS. FAMILY MEMBERS AT BEDSIDE.
--- NOTE | 2018-06-05 19:25 | NUR ---
RECEIVED REPORT FROM MORNING SHIFT RN. PATIENT AAOX4, VERBALLY RESPONSIVE, ABLE TO MAKE NEEDS KNOWN AND FOLLOWS COMMANDS. TEMP 100.7. APPLIED COOLING MEASURE. SINUS TACHYCARDIA ON MONITOR WITH HR 122 NOTED. BILATERAL LUNGS SOUND CLEAR, NO SOB NOTED. PATIENT ON O2 2L/M VIA NC, O2 SAT 95% NOTED. NO ACUTE DISTRESS NOTED. ROUND ABDOMEN NOTED, DRAINAGE BAG FOR GALLBLADDER, NO DRAINAGE COMMING OUT TO BAG BUT IN THE TUBE, MINIMAL RED CLAER DRAINAGE NOTED. CHRONIC ABDOMINAL PAIN 5/10 NOTED. PERIPHERAL IV TO RIGHT AC AND LEFT FORE ARM 18 G, ASYMPTOMATIC, PATENT AND INTACT, RUNNING WITH IV FLUID LR AT 150 ML/HR. SKIN IS INTACT, DRY AND WARM TO TOUCH. HOB ELEVATED, BED IN LOWER POSITION. CALL LIGHT WITHIN REACH. WILL CONTINUE TO MONITOR.
--- NOTE | 2018-06-05 20:30 | NUR ---
ADMINISTERED TYLENOL 650MG SUPPOSITORY ORDERED FOR ABOVE TEMP 100.2F.
--- NOTE | 2018-06-05 20:45 | NUR ---
TAKE THE PATIENT TO CT ABDOMEN AND PELVIC WITH/ WITHOUT CONTRAST.
[2018-06-05] MEDS ORDERED: MEROPENEM 500 MG in NACL 0.9% 50 ML IV SCH (21:00)
[2018-06-05] MEDS: MEROPENEM 1,000 MG in NACL 0.9% 100 ML IV SCH (21:34)
--- NOTE | 2018-06-05 22:00 | NUR ---
ADMINISTERED PRN PAIN MEDICATION ORDERED. PATIENT NOTIFIED TO NURSE, ABDOMINAL PAIN 10/10. WILL CONTINUE TO MONITOR.
--- NOTE | 2018-06-05 22:30 | NUR ---
PATIENT HAD BM, MODERATE AMOUNT BROWN WATERY STOOL NOTED.
[2018-06-06] VITALS (12 sets, daily range): BP systolic 115–151; BP diastolic 55–89
--- NOTE | 2018-06-06 00:10 | NUR ---
ADMINISTERED SCHEDULED ATIVAN ORDERED. PATIENT HAD BM, SMALL AMOUNT BROWN WATERY STOOL NOTED. STILL ST ON THE MONITOR WITH HR 120-130. WILL CONTINUE TO MONITOR.
[2018-06-06] MEDS: HYDROmorphone 1 MG/ML AMP IVP PRN ×4 (01:05→23:41)
--- NOTE | 2018-06-06 01:10 | NUR ---
ADMINISTERED PRN PAIN MEDICATION ORDERED. DRAINAGE BAG FIR GALLBLADDER FLUSHED WITH NS 10ML. NO PAIN NOTED. MINIMAL SEROSANGUINEOUS FLUID WITH SEDIMENT NOTED.
--- NOTE | 2018-06-06 03:00 | NUR ---
PATIENT IS IN SLEEP, NO ACUTE DISTRESS NOTED. STILL ST ON THE MONITOR WITH HR 125 NOTE.
[2018-06-06] MEDS ORDERED: ACETAMINOPHEN 650 MG SUPP RC ONE (04:02)
[2018-06-06] MEDS: ACETAMINOPHEN 325 MG SUPP RC PRN (04:03)
--- NOTE | 2018-06-06 04:10 | NUR ---
ADMINISTERED PRN PAIN MEDICATION ORDERED. WILL CONTINUE TO MONITOR. Addendum: 06/06/18 at 0643 by Janet Child RN AND ADMINISTERED TYLENOL 650MG SUPPOSITORY GIVEN FOR FEVER.
[2018-06-06] MEDS: LORazepam 2 MG/ML VIAL IVP SCH ×2 (05:48→12:25)
[2018-06-06] MEDS: MEROPENEM 1,000 MG in NACL 0.9% 100 ML IV SCH ×3 (05:48→20:18)
[2018-06-06] MEDS: LACTATED RINGERS 1,000 ML IV SCH ×3 (05:54→17:27)
[2018-06-06] MEDS: KETOROLAC 15 MG/ML VIAL IVP PRN ×5 (06:18→20:19)
--- NOTE | 2018-06-06 06:20 | NUR ---
PATIENT REPORTED ABDOMINAL PAIN 9/10, ADMINISTERED PRN TORADOL ORDERED. WILL CONTINUE TO MONITOR.
[2018-06-06 06:30] LABS: HEMATOCRIT 32.6 % (36-52); HEMOGLOBIN 10.9 g/dL (12.0-18.0); MEAN CORPUSCULAR HEMOGLOBIN 30 pg (27-31); MEAN CORPUSCULAR HGB CONC 33 g/dL (33-37); MEAN CORPUSCULAR VOLUME 90.5 fL (80-94); PLATELET COUNT (AUTO) 200 K/uL (140-450); RED CELL DISTRIBUTION WIDTH 13.1 % (11.6-13.7); WHITE BLOOD COUNT (AUTO) 11.8 K/uL (4.8-10.8)
[2018-06-06 07:06] LABS: LYMPHOCYTES % (MANUAL) 12 % (20-46); MONOCYTES % (MANUAL) 15 % (5-12)
[2018-06-06 07:29] LABS: MAGNESIUM 2.1 mg/dL (1.8-2.4); PHOSPHORUS 1.9 mg/dL (2.5-4.9)
--- NOTE | 2018-06-06 07:30 | NUR ---
RECEIVED PT FROM PM NURSE, PT SLEEPING BUT AROUSABLE. BEDSIDE MONITOR SHOWS [facility] ROOM AIR, NO S/S OF RESPIRATORY DISTRESS NOTED. LUNG SOUNDS CLEAR. PT HAS DRAINAGE BAG , MINIMAL BLOODY SECRETION NOTED. ABD LARGGE, PT ABLE TO MOVE ALL HIS EXTREMITIES. PT HAS IV TO RIGHT HAND RUNNING LR AT 150 MLS/HR. POC EXPLAINED TO PT. PT VERBALIZED UNDERSTANDING. TEMP 98.6 TEMP, PT DENIES PAIN AT THIS MOMENT. HOB ELEVATED 30 DEGREES WITH LOW BED POSITION, WILL CONTINUE TO MONITOR.
--- NOTE | 2018-06-06 08:00 | NUR ---
FLUSHED DRAINAGE BAG WITH 10 MLS NS.
[2018-06-06 08:23] LABS: CARBON DIOXIDE 24.2 mmol/L (21-32); CREATININE 0.9 mg/dL (0.7-1.3); POTASSIUM 3.2 mmol/L (3.5-5.1); TOTAL BILIRUBIN 1.5 mg/dL (0.0-1.0)
[2018-06-06] MEDS: PANTOPRAZOLE 40 MG INJ VIAL IVP SCH (08:32)
[2018-06-06] MEDS: CLINICAL MONITORING MC SCH (09:01)
--- NOTE | 2018-06-06 09:46 | NUR ---
ASSISTED PT TO BEDSIDE COMMODE, PT HAD BM 200 MLS OILY LIGHT GREEN BROWNISH LOOSE BM.
[2018-06-06] MEDS ORDERED: POTASSIUM CHLORIDE 40 MEQ, LIDOCAINE 1% 25 MG in NACL 0.9% 250 ML IV SCH (10:00)
[2018-06-06 10:57] LABS: LACTATE DEHYDROGENASE 324 IU/L (121-224)
--- NOTE | 2018-06-06 11:02 | NUR ---
CM NOTE RECEIVED ORDER FOR TRANSFER FOR HIGHER LEVEL OF CARE. SPOKE WITH JANIE OF [facility] PH# [phone] WHO REQUESTED FOR FACESHEET, H&P AND LATEST PROGRESS NOTE TO BE FAXED TO HER AT [phone]. FAXED INFORMATION REQUESTED. SPOKE WITH WATCH CRYSTAL GRINDER SAUMYA OF [facility] PH# [phone] WHO REQUESTED FACESHEET, H&P AND LATEST PROGRESS NOTE TO BE FAXED TO HER AT [phone]. FAXED INFORMATION REQUESTED. SPOKE WITH IMAN OF [facility] PH# [phone] WHO SAID THAT THEY ARE CLOSED FOR TRANSFERS AT THIS TIME, NO BEDS AVAILABLE. IMAN ALSO SAID THAT SHE CANNOT EVEN PUT THE PATIENT ON THEIR WAIT LIST AT THIS TIME. Addendum: 06/06/18 at 1104 by Chela Tate CM PATIENT CURRENTLY A SELF PAY
--- NOTE | 2018-06-06 12:19 | NUR ---
DR. LEY IN TO CHECK PT. DR. LEY STATED IT IS OK TO GIVE PT ICE CHIPS.WILL FOLLOW UP.
[2018-06-06] MEDS ORDERED: MORPHINE SULFATE 2 MG/ML SYR IVP PRN (13:00)
--- NOTE | 2018-06-06 13:45 | NUR ---
PT HAD LIGHT BRADLEY URINE 200 MLS
--- NOTE | 2018-06-06 14:44 | NUR ---
CM NOTE PER SAUMYA, [employer] OF , NO BEDS AVAILABLE AT THIS TIME. PER JANIE OF [facility] PH# [phone], THEY DON'T HAVE A BED AVAILABLE AT THIS TIME BUT THEY MIGHT HAVE A BED AT A LATER TIME. I GAVE HER THE NUMBER TO THE NURSING STATION WHERE PATIENT IS IN CASE IT HAPPENS AT A LATER TIME TODAY.
--- NOTE | 2018-06-06 15:39 | NUR ---
RECEIVED PHONE CALL FROM [facility], DOCTOR IN [facility].
[2018-06-06] MEDS ORDERED: MENTHOL/ZINC OXIDE 113 GM TUBE TP SCH (17:20)
--- NOTE | 2018-06-06 17:25 | NUR ---
PT C/O PAIN, TRIED TO WALK AT BEDSIDE. NOTIFIED DR. WILD.
[2018-06-06] MEDS: MENTHOL/METHYL 10%-15% 114 GM TUBE TP SCH (18:13)
--- NOTE | 2018-06-06 18:51 | NUR ---
PT STATED PAIN RELIVED. RESTING IN BED AT THIS MOMENT. NO S/S OF RESPIRATORY DISTRESS NOTED. FAMILY AT BEDSIDE.
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
[2018-06-06] MEDS: ACETAMINOPHEN 650 MG SUPP RC PRN (19:47)
--- NOTE | 2018-06-06 19:47 | NUR ---
PT NOTED WITH A FEVER. TEMPERATURE WAS 100.9; WILL GIVE MEDICATION ORDERED.
--- NOTE | 2018-06-06 19:50 | NUR ---
CALLED DR. LIAO TO INFORM HIM THAT FAMILY IS REQUESTING TO SPEAK WITH HIM REGARDING THE PT'S CONDITION.
[2018-06-06] MEDS ORDERED: LORazepam 2 MG/ML VIAL IM/IVP PRN (20:15)
--- NOTE | 2018-06-06 20:17 | NUR ---
DR. LIAO AT BEDSIDE TO SPEAK WITH THE FAMILY. INFORMED HIM TOO REGARDING PT'S REQUEST FOR A MEDICATION TO HELP HIM SLEEP. PER DR. LIAO HE WILL ORDER ATIVAN FOR THE PT.
--- NOTE | 2018-06-06 20:30 | NUR ---
PT ON 2 L NC. SPO2 94%. NO SOB OR DISTRESS NOTED. FAMILY AT BEDSIDE. WILL CONTINUE TO MONITOR. Addendum: 06/06/18 at 2030 by Denisa Queen RT CLEAR BILATERAL BREATH SOUNDS
[2018-06-06] MEDS ORDERED: LORazepam 2 MG/ML VIAL IVP SCH (21:00)
--- NOTE | 2018-06-06 21:10 | NUR ---
CALLED DR. LIAO, UPATED ON PT CONDITION PT RATING PAIN 8/10 HR IN 120'S, TORADOL AND TYLENOL GIVEN. DR. LIAO TO UPDATE ORDERS.
--- NOTE | 2018-06-06 21:20 | NUR ---
DR. GUTIERRES AT BEDSIDE TO SEE PT.
--- NOTE | 2018-06-06 21:25 | NUR ---
CALLED AFTER HOURS PHARMACY, REGARDING, NEW ORDER FOR DILAUDED THAT NEEDS VERIFICATION.
[2018-06-06] MEDS ORDERED: HYDROmorphone 1 MG/ML AMP IVP SCH (21:30)
--- NOTE | 2018-06-06 22:00 | NUR ---
RECHECKED PT'S TEMPERATURE, CURRENTLY 99.8
--- NOTE | 2018-06-06 23:25 | NUR ---
REPORT GIVEN TO JUAN J BRADSHAW FOR CONTINUITY OF CARE. ENDORSED REGARDING THE MONITORING OF THE DRAINAGE AND TEMPERATURE OF PT. ALSO NOTIFIED HER REGARDING THE NEXT PAIN MEDICATION. PT COMPLAINING OF PAIN BUT IN STABLE CONDITION AT THIS TIME.
[2018-06-07] VITALS (13 sets, daily range): BP systolic 98–142; BP diastolic 58–92
[2018-06-07] MEDS: LACTATED RINGERS 1,000 ML IV SCH ×3 (01:09→14:31)
[2018-06-07] MEDS: KETOROLAC 15 MG/ML VIAL IVP PRN ×6 (01:27→20:52)
--- NOTE | 2018-06-07 02:45 | NUR ---
TEMP: 99.4, MINIMAL LOOSE BLACK STOOL, URINE OUTPUT 700ML. PT MOTHER AT BEDSIDE.
--- NOTE | 2018-06-07 03:11 | NUR ---
CALLED LUNCHROOM MOTHER PHARMACIST-ROSEMARIE, INFORMED OF SLEEPING PILL NEEDS PHARM VERIFICATION.
[2018-06-07] MEDS: ZOLPIDEM 5 MG TAB PO PRN (03:20)
--- NOTE | 2018-06-07 03:43 | NUR ---
CALLED DR. LIAO, INFORMED PT HAVING 10/10 PAIN, STATED OK TO GIVE SCHEDULED DILAUDED EARLY, WILL CARRY OUT.
[2018-06-07] MEDS: HYDROmorphone 1 MG/ML AMP IVP PRN ×6 (03:45→22:56)
[2018-06-07] MEDS: MEROPENEM 1,000 MG in NACL 0.9% 100 ML IV SCH ×3 (04:34→20:51)
--- NOTE | 2018-06-07 04:45 | NUR ---
FLUSHED DRAINAGE BAG WITH 10 CC NS, NO OUTPUT AT THIS TIME.
--- NOTE | 2018-06-07 05:35 | NUR ---
PT AT BEDSIDE USING URINAL.
--- NOTE | 2018-06-07 06:40 | NUR ---
DR. ALZCANO CAME IN TO SEE PATIENT, UPDATED ON PATIENT CONDITIONS. SPOKE WITH DR. BLANC REGARDING PAIN MEDIATION THAT IS DC'D, DR. LAZCANO WILL UPDATE WITH NEW ORDERS.
--- NOTE | 2018-06-07 07:00 | NUR ---
RECEIVED PT FROM AUGUSTINE ARITA. PT. IS AWAKE C/O ABD. PAIN. IV INFUSING AT 180 ML/HR VIA RT WRIST IV SITE. BENEFITS SPECIALIST SHOWS ST HR IN THE 130'S.
--- NOTE | 2018-06-07 07:10 | NUR ---
PT IS AWAKE, RESTLESS, THRASHING C/O SEVERE ABDOMINAL PAIN. PT WANTS DILAUDID FOR PAIN. DR. WILD NOTIFIED.
--- NOTE | 2018-06-07 07:19 | NUR ---
DILAUDID 1 MG IVP GIVEN. RATES PAIN AT 10. POSITION OF COMFORT. BENGAY APPLIED TO LOWER BACK AREA.
--- NOTE | 2018-06-07 07:30 | NUR ---
SLEEPING SOUNDLY. HR 118 TO 123.
[2018-06-07] MEDS: PANTOPRAZOLE 40 MG INJ VIAL IVP SCH (08:16)
[2018-06-07] MEDS: ACETAMINOPHEN 650 MG SUPP RC PRN ×3 (08:23→16:55)
--- NOTE | 2018-06-07 08:23 | NUR ---
TEMP CHECKED. 101,6. TYLENOM 650 MG SUPP. GIVEN RECTALLY. TEPID SPONGE BATH GIVEN Addendum: 06/07/18 at 1126 by Imelda Arevalo RN TYLENOL NOT TYLENOM.
[2018-06-07 08:25] LABS: HEMATOCRIT 29.7 % (36-52); HEMOGLOBIN 9.7 g/dL (12.0-18.0); MEAN CORPUSCULAR HEMOGLOBIN 30 pg (27-31); MEAN CORPUSCULAR HGB CONC 33 g/dL (33-37); MEAN CORPUSCULAR VOLUME 91.3 fL (80-94); PLATELET COUNT (AUTO) 211 K/uL (140-450); RED BLOOD CELL COUNT(AUTO) 3.25 MIL/uL (4.20-6.10); RED CELL DISTRIBUTION WIDTH 13.4 % (11.6-13.7); WHITE BLOOD COUNT (AUTO) 12.8 K/uL (4.8-10.8)
[2018-06-07] MEDS: MENTHOL/METHYL 10%-15% 114 GM TUBE TP SCH (08:26)
--- NOTE | 2018-06-07 09:15 | NUR ---
DR. CASTANO HERE TO SEE AND EXAMINE PT. SPOKE TO PT AND PT'S DAD.
--- NOTE | 2018-06-07 09:30 | NUR ---
ASSISTED TO BEDSIDE COMMODE. HAD 100 ML OF LOOSE BILE COLORED STOOLS.
[2018-06-07 09:32] LABS: LYMPHOCYTES % (MANUAL) 11 % (20-46); MONOCYTES % (MANUAL) 13 % (5-12)
--- NOTE | 2018-06-07 09:45 | NUR ---
IVF DECREASED TO 100 MLS/HR.
[2018-06-07 10:00] LABS: ANION GAP 13.9 (8-16); CARBON DIOXIDE 24.3 mmol/L (21-32); CREATININE 0.8 mg/dL (0.7-1.3); POTASSIUM 3.2 mmol/L (3.5-5.1)
--- NOTE | 2018-06-07 10:00 | NUR ---
TEMP 99 F.
[2018-06-07 10:01] LABS: PHOSPHORUS 2.2 mg/dL (2.5-4.9)
--- NOTE | 2018-06-07 11:02 | NUR ---
CM NOTE PER JANIE OF [facility] PH# [phone], THEIR ANTISQUEAK WORKER NOT ACCEPT THE PATIENT AT THIS TIME BECAUSE PATIENT IS NOT A SURGICAL CANDIDATE AT THIS TIME. PER NANDINI OF [facility] PH# [phone], NO BEDS AVAILABLE AT THIS TIME. PER ELISEO, [facility] , PH# [phone], NO BEDS AVAILABLE AT THIS TIME. September [facility] ADMITTING DEPT PH# [phone] REQUESTED FOR FACESHEET TO BE FAXED TO HER AT [phone]. FAXED INFORMATION.
--- NOTE | 2018-06-07 12:00 | NUR ---
STATES HE FEELS BETTER TODAY. AMB. AT BEDSIDE. REMAINS IN ST. HR INCREASED WITH ACTIVITY AND PAIN.
--- NOTE | 2018-06-07 13:17 | NUR ---
MEDICATED WITH TYLENOL SUPP. 650 MG FOR TEMP OF 101.3 DEGREES F. COOLING MEASURES DONE.
--- NOTE | 2018-06-07 14:00 | NUR ---
TEMP RECHECKED 99.6.
--- NOTE | 2018-06-07 14:51 | NUR ---
CM NOTE PER SEPTEMBER OF [facility] ADMITTING DEPT PH# [phone], TO HAVE THE ATTENDING DOCTOR IN [facility] CALL THEIR PARQUETRY LAYER DOCTOR, DR. AUREA BRAY PH# [phone], TO GIVE A DOCTOR TO DOCTOR REPORT AND TO FIND OUT WHETHER PATIENT WILL BE ACCEPTED. AND IF ACCEPTED BY DR. BRAY, TO HAVE DR. BRAY CALL [facility] ADMITTING DEPT TO INFORM THEM THAT PATIENT IS BEING ACCEPTED AND THEY CAN START LOOKING FOR A BED. PER SEPTEMBER, NO BEDS AVAILABLE AT THIS TIME, BUT THEY ARE ANTICIPATING DISCHARGES AND MIGHT POSSIBLY HAVE A BED AVAILABLE AFTER 7PM. DR. DUVALL, ATTENDING PHYSICIAN, AWARE.
--- NOTE | 2018-06-07 15:00 | NUR ---
DR. LEY HERE TO SEE AND EXAMINE PT.
--- NOTE | 2018-06-07 15:59 | NUR ---
SPOKE TO SEPTEMBER AT [facility] ADMITTING OFFICE. DR. BRAY HAS NOT CALLED THEM YET RE: PT'S ADMISSION, AND THAT THEY DO NOT HAVE BEDS AVAILABLE AT THIS TIME. DR. DUVALL MADE AWARE.
--- NOTE | 2018-06-07 16:03 | NUR ---
RECEIVED A CALL FROM DR. DUVALL. HE SAID THAT DR BRAY WOULD ACCEPT THE PATIENT AT [facility]. I CALLED LEX ARITA AND INFORMED HER AND ASKED HER TO CALL [facility] TO SEE IF THEY NEEDED ANY INFORMATION FROM US.
--- NOTE | 2018-06-07 16:55 | NUR ---
TEMP 101.1 DEGREES FAHRENHEIT, TYLENOL 650 MG SUPP. GIVEN RECTALLY. COOLING MEASURES DONE.
[2018-06-07] MEDS ORDERED: KCL 20 MEQ/WATER INJ PREMIX 200 ML IV ONE (17:50)
--- NOTE | 2018-06-07 17:50 | NUR ---
DR. HOLLAND HERE TO SEE AND EXAMAINE PT. MADE AWARE OF K+ 3.2. GAVE ORDER FOR Vanessa COLLINS.
[2018-06-07] MEDS ORDERED: POTASSIUM CHLORIDE 40 MEQ, LIDOCAINE MPF 1% - 5 mL VIAL 25 MG in NACL 0.9% 250 ML IV SCH (18:30)
--- NOTE | 2018-06-07 19:00 | NUR ---
TEMP RECHECKED 100.6 DEGREES FAHRENHEIT. SLEEPING. RESP EASY AND REGULAR, ELECTRONIC INDUSTRIAL CONTROLS MECHANIC SHOWS ST HR 108/MIN. AT BEDSIDE.
--- NOTE | 2018-06-07 19:20 | NUR ---
RECEIVED REPORT FROM MORNING SHIFT RN. PATIENT AAOX4, VERBALLY RESPONSIVE, ABLE TO MAKE NEEDS KNOWN AND FOLLOWS COMMANDS. TEMP 100.2. APPLIED COOLING MEASURE. TYLENOL GIVEN BY MORNING RN. SINUS TACHYCARDIA ON MONITOR WITH HR 112 NOTED. BILATERAL LUNGS SOUND CLEAR, NO SOB NOTED. PATIENT ON ROOM AIR, DENIES ANY HARD OF BREATHING, O2 SAT 94% NOTED. NO ACUTE DISTRESS NOTED. ROUND ABDOMEN NOTED, DRAINAGE BAG FOR GALLBLADDER, MINIMAL DRAINAGE COMING OUT TO BAG. CHRONIC ABDOMINAL PAIN 5/10 NOTED. PERIPHERAL IV TO RIGHT WRIST 22G, ASYMPTOMATIC, PATENT AND INTACT, RUNNING WITH IV FLUID LR AT 100 ML/HR. SKIN IS INTACT, DRY AND WARM TO TOUCH. HOB ELEVATED, BED IN LOWER POSITION. CALL LIGHT WITHIN REACH. WILL CONTINUE TO MONITOR.
--- NOTE | 2018-06-07 21:00 | NUR ---
ADMINISTERED SCHEDULED IV ABX AND PRN PAIN MEDICATION ORDERED. ABDOMINAL PAIN 9/10 NOTED. TEMP 99.2 NOTED. WILL CONTINUE TO MONITOR.
[2018-06-08] VITALS (12 sets, daily range): BP systolic 134–176; BP diastolic 64–97
--- NOTE | 2018-06-08 | NUR ---
PATIENT HAD BM, SMALL AMOUNT DARK BROWN SOFT STOOL NOTED. STILL COMPLAINT OF ABDOMINAL PAIN 09/04. PRN DILAUDID GIVEN. NO SOB NOTED. ST WITH HR 110 TO 120 ON THE MONITOR. WILL CONTINUE TO MONITOR.
[2018-06-08] MEDS: LACTATED RINGERS 1,000 ML IV SCH (00:56)
[2018-06-08] MEDS: KETOROLAC 15 MG/ML VIAL IVP PRN ×6 (00:56→22:36)
[2018-06-08] MEDS: ZOLPIDEM 5 MG TAB PO PRN (01:08)
--- NOTE | 2018-06-08 01:10 | NUR ---
PT REPORTED THAT HE TRIED TO SLEEP BUT HE COULD NOT. ADMINISTERED PRN AMBIUN AT THIS TIME. WILL CONTINUE TO MONITOR.
--- NOTE | 2018-06-08 02:40 | NUR ---
PATIENT HAD BM, SMEAR AMOUNT DARK BROWN SOFT STOOL NOTED AND PATIENT URINATED CLEAR YELLOW URINE NOTED. ST ON THE MONITOR. ABDOMINAL PAIN 9/10 NOTED. WILL ADMINISTER PAIN MEDICATION. WILL CONTINUE TO MONITOR.
[2018-06-08] MEDS: HYDROmorphone 1 MG/ML AMP IVP PRN ×7 (02:56→23:25)
--- NOTE | 2018-06-08 04:00 | NUR ---
PATIENT RESTLESSNESS, ANXIOUS NOTED BECAUSE OF HARD TO SLEEP. ADMINISTERED PRN ATIVAN AT THIS TIME. ST NOTED. WILL CONTINUE TO MONITOR.
[2018-06-08] MEDS: MEROPENEM 1,000 MG in NACL 0.9% 100 ML IV SCH ×3 (04:18→20:08)
--- NOTE | 2018-06-08 05:30 | NUR ---
PATIENT IN ASLEEP AT THIS TIME, NO ACUTE DISTRESS NOTED. NO SOB. ST ON THE MONITOR. WILL CONTINUE TO MONITOR.
[2018-06-08 06:17] LABS: WHITE BLOOD COUNT (AUTO) 13.5 K/uL (4.8-10.8)
[2018-06-08 06:35] LABS: MEAN CORPUSCULAR HEMOGLOBIN 30 pg (27-31); MEAN CORPUSCULAR HGB CONC 33 g/dL (33-37); MEAN CORPUSCULAR VOLUME 90.5 fL (80-94); PLATELET COUNT (AUTO) 257 K/uL (140-450); RED BLOOD CELL COUNT(AUTO) 3.32 MIL/uL (4.20-6.10); RED CELL DISTRIBUTION WIDTH 12.9 % (11.6-13.7)
[2018-06-08 06:54] LABS: LYMPHOCYTES % (MANUAL) 12 % (20-46); MONOCYTES % (MANUAL) 12 % (5-12)
[2018-06-08 06:55] LABS: EOSINOPHILS % (MANUAL) 2 % (0-4)
[2018-06-08 06:59] LABS: ANION GAP 14.6 (8-16); CARBON DIOXIDE 24.4 mmol/L (21-32); CREATININE 0.8 mg/dL (0.7-1.3)
[2018-06-08 07:08] LABS: PHOSPHORUS 2.6 mg/dL (2.5-4.9)
--- NOTE | 2018-06-08 07:15 | NUR ---
RECEIVED REPORT FROM YARN MERCERIZER OPERATOR RN. PT LYING IN BED. A/O X4. ST ON MONITOR. ABLE TO MAKE NEEDS KNOWN. LUNGS CLEAR. PERIPHERAL NINE NOTED ON RIGHT WRIST. INTACT LINE LR RUNNING AT 100 ML/HR. ABDOMEN SOFT, ROUND AND TENDERNESS PRESENT. ACTIVE BOWEL SOUND. DRAINAGE NOTED ON RIGHT UPPER QUADRANT COVERED WITH DRESSING, DRAINING SEROSANGUINEOUS DRAINAGE IN SMALL AMOUNT. SKIN INTACT. KEPT HOB ELEVATED. CALL LIGHT WITHIN REACH. BED IN LOW POSITION LOCKED. WILL CONTINUE TO MONITOR.
--- NOTE | 2018-06-08 08:15 | NUR ---
PT ABLE TO DID ORAL CARE AND SPONGING INDEPENDENTLY. FATHER AT BEDSIDE. Addendum: 06/08/18 at 1054 by Enma Zuniga RN PT DID
--- NOTE | 2018-06-08 08:25 | NUR ---
PT BEING EVALUATED BY DR. CASTANO AT THIS TIME.
[2018-06-08] MEDS ORDERED: FUROSEMIDE 20 MG/2 ML VIAL IVP SCH (08:30)
[2018-06-08] MEDS ORDERED: diphenhydrAMINE 50 MG/ML VIAL IVP SCH (08:30)
--- NOTE | 2018-06-08 08:34 | NUR ---
CM NOTE RECEIVED CALL FROM [facility] PAINT ROLLER COVERMAKER DOCTOR FOR TODAY DR. BEAUCHAMP PH# [phone] WHO STATED THAT HE IS NOT ACCEPTING THE PATIENT BECAUSE THEY DO NOT HAVE A SURGEON WHO SPECIALIZES IN PANCREATIC DEBRIDEMENT OR RESECTION. RECEIVED CALL FROM JOO OF [facility] ADMITTING DEPT # [phone] WHO STATED THAT THEIR DOCTOR IS NOT ACCEPTING BECAUSE PER THEIR DR. BEAUCHAMP THE PATIENT NEEDS HIGHER LEVEL OF CARE THAN [facility].
[2018-06-08] MEDS: DEXT 5% /NACL 0.9% 1,000 ML IV SCH (08:50)
[2018-06-08] MEDS: PANTOPRAZOLE 40 MG INJ VIAL IVP SCH (08:51)
[2018-06-08] MEDS: MENTHOL/METHYL 10%-15% 114 GM TUBE TP SCH (08:52)
[2018-06-08] MEDS: CLINICAL MONITORING MC SCH (09:00)
[2018-06-08] MEDS: ACETAMINOPHEN 650 MG SUPP RC PRN (10:24)
[2018-06-08] MEDS ORDERED: POTASSIUM CHLORIDE 40 MEQ, LIDOCAINE 1% 25 MG in NACL 0.9% 250 ML IV SCH (10:30)
--- NOTE | 2018-06-08 11:22 | NUR ---
FEVER DECREASED TO 100.4 DEGREE F. WILL CONTINUE TO MONITOR.
--- NOTE | 2018-06-08 11:39 | NUR ---
ORAL TEMP CHECKED 99.2 F AT THIS MOMENT.
--- NOTE | 2018-06-08 14:08 | NUR ---
06/08/18 RD FOLLOW UP COMPLETED PLEASE REFER TO NUTRITION ASSESSMENT UNDER CARE ACTIVITY FOR ESTIMATED NUTRITIONAL NEEDS. 1. CONTINUE CLEAR LIQUID DIET WITH ENSURE CLEAR TOLERATED 2. WHEN PATIENT IS MEDICALLY STABLE CONSIDER ADVANCING DIET TOLERATED TO FULL LIQUID. 3. RD TO FOLLOW-UP 3-5 DAYS, MODERATE RISK SHANTELLE STEWART RD
[2018-06-08] MEDS: FLUTICASONE NASAL 50 MCG/ACTUATION 16 GM BTL NS SCH (15:53)
--- NOTE | 2018-06-08 17:19 | NUR ---
PT ASLEEP. CONTINUE MONITORING. ROOM AIR 94%. ST ON MONITOR. AT BEDSIDE.
--- NOTE | 2018-06-08 17:38 | NUR ---
PT NOTED WITH ELEVATED BODY TEMPERATURE UP TO 100 DEGREE F. EXTRA CLOTHES REMOVED. PROVIDING COLD SPONGING.
--- NOTE | 2018-06-08 18:47 | NUR ---
PT LEFT FOR CT, ACCOMPANIED WITH RN, DEBRIDGING MACHINE OPERATOR, RT. Addendum: 06/08/18 at 1917 by Tank Hester RN wrong entry !
--- NOTE | 2018-06-08 19:00 | NUR ---
NOTIFIED DR. LIAO PT HAS PAIN, PER , IT IS OK TO GIVE PT TORADOL AT THIS MOMENT. WILL CARRY OUT.
--- NOTE | 2018-06-08 19:35 | NUR ---
REPORT GIVEN TO REPTILE KEEPER RN FOR CONTINUITY OF CARE.
--- NOTE | 2018-06-08 20:50 | NUR ---
RECEIVED REPORT FROM AM SHIFT. PT AFEBRILE. AOX4. FOLLOWS COMMANDS. ABLE TO VERBALIZE NEEDS. LUNG SOUNDS CLEAR BILAT. ON ROOM AIR. SINUS TACH ON MONITOR. CLEAR LIQUID DIET. BOWEL SOUNDS ACTIVE X4 QUADRANTS. ABD SOFT NONDISTENDED. BLADDER NONDISTENDED. IV SITE RIGHT WRIST. NO SIGNS OF ACUTE DISTRESS. BED IN LOWEST POSITION. CALL LIGHT WITHIN REACH FAMILY AT BEDSIDE.
--- NOTE | 2018-06-08 21:25 | NUR ---
PT TAKEN TO CT. NO SIGNS OF ACUTE DISTRESS AT THIS TIME.
--- NOTE | 2018-06-08 21:38 | NUR ---
PT RETURNED FROM CT ABD W/O CONTRAST. NO SIGNS OF ACUTE DISTRESS AT THIS TIME.
--- NOTE | 2018-06-08 22:48 | NUR ---
PT TEMP 101.3. COOLING MEASURES PROVIDED.
--- NOTE | 2018-06-08 23:33 | NUR ---
ADMINISTERED DILAUDID 1MG IVP FOR 9/10 PAIN TO ABD. WILL REASSESS PAIN LEVELS.
[2018-06-09] VITALS (12 sets, daily range): BP systolic 110–152; BP diastolic 50–97
[2018-06-09] MEDS: KETOROLAC 15 MG/ML VIAL IVP PRN ×2 (01:36→05:05)
--- NOTE | 2018-06-09 02:24 | NUR ---
DR LIAO AT BEDSIDE AT THIS TIME. UPDATED ON PATIENTS CURRENT CONDITION. MADE AWARE OF PATIENT'S PLACEMENT ISSUE. WILL CONTINUE TO FOLLOW UP ADDITIONAL ORDERS.
[2018-06-09] MEDS: HYDROmorphone 1 MG/ML AMP IVP PRN ×8 (02:32→23:40)
--- NOTE | 2018-06-09 02:40 | NUR ---
PAGED DR. LIAO REGARDING 2 EPISODES OF V-TACH AND BIGEMINY. PT SHOWS NO SIGNS OF ACUTE DISTRESS AND IS RESPONSIVE. WILL CONTINUE TO FOLLOW UP ADDITIONAL ORDERS.
[2018-06-09] MEDS ORDERED: METOPROLOL 5 MG/5 ML VIAL IV SCH (02:45)
[2018-06-09] MEDS: DEXT 5% /NACL 0.9% 1,000 ML IV SCH ×2 (02:59→23:13)
--- NOTE | 2018-06-09 03:00 | NUR ---
ADMINISTERED LOPRESSOR 5G/5ML IVP FOR TACHYCARDIA
[2018-06-09] MEDS: MEROPENEM 1,000 MG in NACL 0.9% 100 ML IV SCH ×3 (04:00→20:23)
--- NOTE | 2018-06-09 04:33 | NUR ---
PT GIVEN ICE CHIPS AT THIS TIME.
--- NOTE | 2018-06-09 05:00 | NUR ---
ADMINISTERED TRAMADOL IVP. PT C/O PAIN 12/05 TO ABD.
--- NOTE | 2018-06-09 05:03 | NUR ---
LAB AT BEDSIDE AT THIS TIME
[2018-06-09 06:17] LABS: MAGNESIUM 2.1 mg/dL (1.8-2.4)
[2018-06-09 06:18] LABS: ALBUMIN 2.1 g/dL (3.4-5.0); ANION GAP 13.1 (8-16); CARBON DIOXIDE 28.7 mmol/L (21-32); CREATININE 0.8 mg/dL (0.7-1.3); POTASSIUM 3.8 mmol/L (3.5-5.1)
[2018-06-09 06:32] LABS: LD1 FRACTION 10 % (17-32); LD2 FRACTION 16 % (25-40); LD3 FRACTION 14 % (17-27); LD4 FRACTION 10 % (5-13)
[2018-06-09 06:44] LABS: HEMATOCRIT 28.8 % (36-52); HEMOGLOBIN 9.5 g/dL (12.0-18.0); MEAN CORPUSCULAR HEMOGLOBIN 30 pg (27-31); MEAN CORPUSCULAR HGB CONC 33 g/dL (33-37); MEAN CORPUSCULAR VOLUME 90.9 fL (80-94); PLATELET COUNT (AUTO) 307 K/uL (140-450); RED BLOOD CELL COUNT(AUTO) 3.17 MIL/uL (4.20-6.10); RED CELL DISTRIBUTION WIDTH 13.1 % (11.6-13.7); WHITE BLOOD COUNT (AUTO) 16.2 K/uL (4.8-10.8)
[2018-06-09 07:16] LABS: LYMPHOCYTES % (MANUAL) 14 % (20-46); MONOCYTES % (MANUAL) 7 % (5-12)
--- NOTE | 2018-06-09 07:28 | NUR ---
ENDORSED CARE TO INCOMING SHIFT FOR CONTINUITY OF CARE. NO SIGNS OF ACUTE DISTRESS NOTED.
--- NOTE | 2018-06-09 07:29 | NUR ---
RECEIVED REPORT FROM EDITORIAL ASSISTANT RN. A/O X4. ST ON MONITOR. ABLE TO MAKE NEEDS KNOWN. LUNGS CLEAR. PERIPHERAL LINE NOTED ON RIGHT WRIST. LR RUNNING AT 50 ML/HR. BRUISE NOTED ON LEFT FOREARM. ABDOMEN SOFT, ROUND AND TENDERNESS PRESENT. HYPOACTIVE BOWEL SOUND. RT GB DRAINAGE NOTED COVERED WITH DRESSING, DRAINING SEROSANGUINEOUS DRAINAGE IN SMALL AMOUNT. SKIN INTACT. DENIED PAIN. KEPT HOB ELEVATED. CALL LIGHT WITHIN REACH. BED IN LOW POSITION LOCKED. WILL CONTINUE TO MONITOR.
--- NOTE | 2018-06-09 07:50 | NUR ---
PT BRUSHED TEETH AND DID SPONGE PATH INDEPENDENTLY.
[2018-06-09] MEDS ORDERED: COMMUNICATION ORDER MC PRN (08:00)
--- NOTE | 2018-06-09 08:05 | NUR ---
RECEIVED CALL FROM DR. SINGLETON. UPDATED ABOUT RECENT LABS. ORDERED TO GIVE 2 GM CALCIUM GLUCONATE IN 100 ML NS OVER 1 HOUR IV, TYPE AND SCREEN STAT. SAID PT WILL BE SCHEDULED FOR SURGERY TOMORROW AT 0730 AM, KEEP PT NPO EXCEPT MEDS AFTER MID NIGHT. WILL CARRY OUT ORDER. PT MADE AWARE.
[2018-06-09] MEDS: CLINICAL MONITORING MC SCH (08:39)
[2018-06-09] MEDS: PANTOPRAZOLE 40 MG INJ VIAL IVP SCH (08:43)
[2018-06-09] MEDS: FLUTICASONE NASAL 50 MCG/ACTUATION 16 GM BTL NS SCH (08:44)
[2018-06-09] MEDS: MENTHOL/METHYL 10%-15% 114 GM TUBE TP SCH (08:44)
[2018-06-09] MEDS ORDERED: CALCIUM GLUCONATE 10% 2,000 MG in NACL 0.9% 100 ML IV SCH (09:00)
--- NOTE | 2018-06-09 09:10 | NUR ---
PT RESTING IN BED. PT NOTED WITH A FIB, IRREGULAR HEART RATE. DR. JUAREZ MADE AWARE. PT DENIES ANY DIZZINESS OR CHEST PAIN AT THIS TIME.
[2018-06-09] MEDS: ACETAMINOPHEN 650 MG SUPP RC PRN ×2 (09:35→16:48)
--- NOTE | 2018-06-09 11:29 | NUR ---
FEVER DECREASED TO 100.2 DEGREE F. CONTINUE ON COLD SPONGING. NO C/O PAIN AT THIS TIME. WATCHING TV.
[2018-06-09] MEDS ORDERED: CALCIUM CARBONATE 500 MG TAB.CHEW PO SCH (12:25)
--- NOTE | 2018-06-09 12:25 | NUR ---
PT C/O BURNING THROAT WHILE BURPING. DR. WILD MADE AWARE.
--- NOTE | 2018-06-09 12:33 | NUR ---
FEVER DECREASED TO 99.9. PT RESTING IN BED COMFORTABLY. NO C/O PAIN AT THIS TIME. NO ACUTE RESPIRATORY DISTRESS NOTED. ST ON MONITOR. BP WNL. 97% IN ROOM AIR.
--- NOTE | 2018-06-09 13:50 | NUR ---
DR. HOLLAND CAME IN TO SEE PT AT BEDSIDE, NO NEW ORDER AT THIS TIME.
[2018-06-09 14:25] LABS: LD5 FRACTION 50 % (4-20)
--- NOTE | 2018-06-09 17:00 | NUR ---
PT NOTED WITH FEVER 102.2. REMOVED EXTRA CLOTHES. ON COLD SPONGING. TYLENOL SUPPOSITORY ADMINISTERED ORDERED.
[2018-06-09] MEDS: CALCIUM CARBONATE 500 MG TAB.CHEW PO PRN (18:13)
--- NOTE | 2018-06-09 18:32 | NUR ---
FEVER DECREASED TO 100.2. CONTINUE ON COLD SPONGING.
--- NOTE | 2018-06-09 19:11 | NUR ---
REPORT GIVEN TO LOCUM TENENS PSYCHIATRIST RN FOR CONTINUITY OF CARE.
--- NOTE | 2018-06-09 19:12 | NUR ---
RECEIVED REPORT FROM AM SHIFT. PT AO X4. FOLLOWS COMMANDS. ABLE TO VERBALIZE NEEDS. RESPONDS TO VERBAL AND TACTILE STIMULI. ON ROOM AIR. LUNG SOUNDS CLEAR. ON CLEAR LIQUID DIET. BOWEL SOUNDS ACTIVE X 4 QUADRANTS. SINUS TACH ON MONITOR. L HAND 20G. PATENT INTACT. AMBULATORY. STEADY GAIT. NO SIGNS OF ACUTE DISTRESS AT THIS TIME. BED IN LOWEST POSITION. FAMILY AT BEDSIDE. WILL CONTINUE TO MONITOR.
--- NOTE | 2018-06-09 21:05 | NUR ---
ADMINISTERED DILAUDID 1MG IVP FOR PAIN 03/07 IN ABD. WILL CONTINUE TO MONITOR
--- NOTE | 2018-06-09 21:40 | NUR ---
DR. GUTIERRES AT BEDSIDE TO EVALUATE PT. UPDATED ON PTS CURRENT CONDITION. WILL CONTINUE TO MONITOR.
--- NOTE | 2018-06-09 23:50 | NUR ---
ADMINISTERED DILAUDID 1MG IVP AT THIS TIME. WILL REEVALUATE PAIN LEVELS.
[2018-06-10] VITALS (12 sets, daily range): BP systolic 121–148; BP diastolic 63–100
--- NOTE | 2018-06-10 00:54 | NUR ---
PT RESTING QUIETLY AT THIS TIME. NO SIGNS OF ACUTE DISTRESS NOTED.
[2018-06-10] MEDS: ZOLPIDEM 5 MG TAB PO PRN (01:38)
[2018-06-10] MEDS: HYDROmorphone 1 MG/ML AMP IVP PRN ×7 (02:56→21:39)
--- NOTE | 2018-06-10 03:01 | NUR ---
PT C/O PAIN 04/06 TO ABD. ADMINISTERED DILAUDID IVP
[2018-06-10] MEDS: MEROPENEM 1,000 MG in NACL 0.9% 100 ML IV SCH ×3 (04:35→21:02)
--- NOTE | 2018-06-10 05:07 | NUR ---
LAB AT BEDSIDE AT THIS TIME
[2018-06-10 06:42] LABS: HEMOGLOBIN 9.4 g/dL (12.0-18.0); MEAN CORPUSCULAR HEMOGLOBIN 29 pg (27-31); MEAN CORPUSCULAR HGB CONC 33 g/dL (33-37); MEAN CORPUSCULAR VOLUME 90.5 fL (80-94); PLATELET COUNT (AUTO) 372 K/uL (140-450); RED BLOOD CELL COUNT(AUTO) 3.21 MIL/uL (4.20-6.10); RED CELL DISTRIBUTION WIDTH 13.1 % (11.6-13.7); WHITE BLOOD COUNT (AUTO) 19.8 K/uL (4.8-10.8)
--- NOTE | 2018-06-10 06:46 | NUR ---
DR. DUVALL AT BEDSIDE AT THIS TIME. UPDATED ON PTS CURRENT CONDITION.
[2018-06-10 07:01] LABS: ANION GAP 13.1 (8-16); CARBON DIOXIDE 27.2 mmol/L (21-32); CREATININE 0.8 mg/dL (0.7-1.3); POTASSIUM 3.3 mmol/L (3.5-5.1)
--- NOTE | 2018-06-10 07:05 | NUR ---
ENDORSED CARE TO INCOMING SHIFT FOR CONTINUITY OF CARE. BED IN LOWEST POSITION. CALL LIGHT WITHIN REACH.
[2018-06-10 07:08] LABS: MAGNESIUM 1.9 mg/dL (1.8-2.4); PHOSPHORUS 3.1 mg/dL (2.5-4.9)
--- NOTE | 2018-06-10 07:10 | NUR ---
RECIEVED REPORT FROM PM NURSE SHERRELL. PT AO X4. FOLLOWS COMMANDS. ABLE TO VERBALIZE NEEDS. RESPONDS TO VERBAL AND TACTILE STIMULI. ON ROOM AIR. LUNG SOUNDS CLEAR. ON CLEAR LIQUID DIET. BOWEL SOUNDS ACTIVE X 4 QUADRANTS. SINUS TACH ON MONITOR. L HAND 20G. PATENT INTACT. AMBULATORY. STEADY GAIT. NO SIGNS OF ACUTE DISTRESS AT THIS TIME. BED IN LOWEST POSITION. FAMILY AT BEDSIDE. WILL CONTINUE TO MONITOR.
[2018-06-10 07:26] LABS: LYMPHOCYTES % (MANUAL) 3 % (20-46)
[2018-06-10 07:27] LABS: EOSINOPHILS % (MANUAL) 1 % (0-4); MONOCYTES % (MANUAL) 5 % (5-12)
[2018-06-10] MEDS: PANTOPRAZOLE 40 MG INJ VIAL IVP SCH (08:59)
[2018-06-10] MEDS ORDERED: PANTOPRAZOLE 40 MG INJ VIAL IVP SCH (09:00)
[2018-06-10] MEDS: FLUTICASONE NASAL 50 MCG/ACTUATION 16 GM BTL NS SCH (09:00)
--- NOTE | 2018-06-10 09:00 | NUR ---
NO STATED NEEDS AT THIS TIME.
[2018-06-10] MEDS: MENTHOL/METHYL 10%-15% 114 GM TUBE TP SCH (09:01)
[2018-06-10] MEDS: CLINICAL MONITORING MC SCH (09:04)
[2018-06-10] MEDS ORDERED: POTASSIUM CHLORIDE 10 MEQ TABER PO SCH (10:00)
[2018-06-10] MEDS ORDERED: POTASSIUM CHLORIDE 40 MEQ, LIDOCAINE MPF 1% - 5 mL VIAL 25 MG in NACL 0.9% 250 ML IV SCH (10:00)
--- NOTE | 2018-06-10 10:56 | NUR ---
SPOKE WITH DR TRIMBLE REGARDING PATIENT FEVER OF 100.6 F. HE STATED HE WOULD ORDER TORADOL. WILL GIVE MEDICATION ORDERED.
--- NOTE | 2018-06-10 13:00 | NUR ---
FAMILY AT BEDSIDE.
[2018-06-10 15:33] LABS: ANION GAP 11.6 (8-16); CARBON DIOXIDE 28.1 mmol/L (21-32); CREATININE 0.8 mg/dL (0.7-1.3); POTASSIUM 3.7 mmol/L (3.5-5.1)
--- NOTE | 2018-06-10 19:15 | NUR ---
REPORT FOR CONTINUED CARE GIVEN TO NIGHT NURSE EPHRAIM. PATIENT STABLE A&OX4.
--- NOTE | 2018-06-10 19:20 | NUR ---
RECEIVED PATIENT ON BED, AWAKE, ALERT AND ORIENTED; ABLE TO MOVE LIMBS FREELY. CARDIACSCOPE SHOWS ON SINUS TACHCY HR 118/MIN NO ARRHYTHMIAS SEEN. COMMENCING ON IVF D5NS AT 50 ML/HR VIA G20 IV CANNULA ON LEFT HAND; PATENT AND INTACT. ABDOMEN IS SOFT, ACTIVE BOWEL SOUNDS.
[2018-06-10] MEDS: DEXT 5% /NACL 0.9% 1,000 ML IV SCH (21:00)
--- NOTE | 2018-06-10 21:00 | NUR ---
FAMILY AT BEDSIDE.
--- NOTE | 2018-06-10 21:15 | NUR ---
COMPLAINED OF BACK PAIN AND ABDOMINAL PAIN;PAIN SCALE7/10; MEDICATED WITH IV DILAUDID.
[2018-06-11] VITALS (12 sets, daily range): BP systolic 116–144; BP diastolic 64–85
--- NOTE | 2018-06-11 00:10 | NUR ---
WITH FEVER 102F; COOLING MEASURES DONE; TORADOL IV GIVEN.
[2018-06-11] MEDS: HYDROmorphone 1 MG/ML AMP IVP PRN ×8 (00:20→23:44)
[2018-06-11] MEDS: KETOROLAC 30 MG/ML VIAL IVP PRN ×2 (00:35→18:28)
[2018-06-11] MEDS: MEROPENEM 1,000 MG in NACL 0.9% 100 ML IV SCH ×3 (05:00→20:43)
--- NOTE | 2018-06-11 06:15 | NUR ---
REFUSED MORNING CARE AT THIS TIME; HE SAID HE'LL DO IT LATER AT HE WAS HAVING PAIN AGAIN AND WANTS TO REST AND SLEEP.
--- NOTE | 2018-06-11 06:20 | NUR ---
OBSERVED THAT PATIENT IS COMPLAINING OF BACK PAIN AND ABDOMINAL PAIN EVERY 3HRS.
[2018-06-11 07:01] LABS: HEMATOCRIT 26.9 % (36-52); MEAN CORPUSCULAR HEMOGLOBIN 30 pg (27-31); MEAN CORPUSCULAR HGB CONC 33 g/dL (33-37); MEAN CORPUSCULAR VOLUME 89.6 fL (80-94); PLATELET COUNT (AUTO) 436 K/uL (140-450); RED CELL DISTRIBUTION WIDTH 13.2 % (11.6-13.7); WHITE BLOOD COUNT (AUTO) 18.6 K/uL (4.8-10.8)
--- NOTE | 2018-06-11 07:10 | NUR ---
ENDORSED TO AM SHIFT JUAN J MOHR FOR CONTINUITY OF CARE.
--- NOTE | 2018-06-11 07:30 | NUR ---
RECEIVED BEDSIDE REPORT FROM PLATER APPRENTICE RN. PT IS AWAKE, AAOX4, ABLE TO MAKE NEEDS KNOWN AND FOLLOW COMMANDS. FEVER 100.2. C/O ABDOMINAL PAIN 2/10. COOLING MEASURES IN PLACE. SINUS TACHYCARDIA ON MONITOR. S1 S2 HEARD. PT IS ON ROOM AIR, O2 SAT 95%, NO SOB NOTED. BREATHING EVEN AND UNLABORED. BREATH SOUNDS CLEAR BILATERALLY. ABD SOFT, ROUND. BOWEL SOUNDS ACTIVE X 4 QUADRANTS. PT IS CLEAR LIQUID DIET. BREAKFAST SERVED. PT ABLE TO EAT INDEPENDENTLY. NO AMOUNT OF DRAINAGE NOTED IN GALL BLADDER DRAIN. PERIPHERAL IV G20 TO LEFT HAND ASYMPTOMATIC, PATENT AND INTACT, RUNNING D5NS AT 50 ML/HR. PT IS AMBULATORY. SKIN IS INTACT, DRY AND WARM TO TOUCH. BED IN LOWEST POSITION. CALL LIGHT WITHIN REACH. WILL CONTINUE TO MONITOR.
[2018-06-11 07:35] LABS: LYMPHOCYTES % (MANUAL) 6 % (20-46); MONOCYTES % (MANUAL) 8 % (5-12)
--- NOTE | 2018-06-11 07:55 | NUR ---
DR. VALE AND RESIDENT GROUP IN TO SEE PT. WILL FOLLOW UP ON ORDERS.
[2018-06-11 08:02] LABS: MAGNESIUM 2.1 mg/dL (1.8-2.4); PHOSPHORUS 3.4 mg/dL (2.5-4.9)
[2018-06-11] MEDS: PANTOPRAZOLE 40 MG INJ VIAL IVP SCH (09:03)
[2018-06-11] MEDS: MENTHOL/METHYL 10%-15% 114 GM TUBE TP SCH (09:03)
[2018-06-11] MEDS: FLUTICASONE NASAL 50 MCG/ACTUATION 16 GM BTL NS SCH (09:04)
[2018-06-11] MEDS: CLINICAL MONITORING MC SCH (09:04)
--- NOTE | 2018-06-11 09:15 | NUR ---
MEDICATIONS ADMINISTERED ORDERED. FAMILY AT BEDSIDE TALKING TO PT. NO SOB OR DISTRESS NOTED. VSS.
[2018-06-11 09:22] LABS: ANION GAP 9.4 (8-16); CARBON DIOXIDE 28.1 mmol/L (21-32); POTASSIUM 3.5 mmol/L (3.5-5.1)
[2018-06-11 09:23] LABS: CREATININE 0.7 mg/dL (0.7-1.3)
--- NOTE | 2018-06-11 10:45 | NUR ---
PT HAD A SMALL AMOUNT OF DARK BROWN LIQUID BOWEL MOVEMENT. USED BEDSIDE COMMODE. VSS. AT BEDSIDE. NO SIGNS OF ACUTE DISTRESS NOTED.
--- NOTE | 2018-06-11 11:00 | NUR ---
PT SEEN AND EXAMINED BY DR. SKYLER Multani WILL FOLLOW UP ON ORDERS.
--- NOTE | 2018-06-11 13:15 | NUR ---
FAMILY AT BEDSIDE. PT WATCHING TV. VSS. SAFETY PRECAUTIONS IN PLACE. WILL CONTINUE TO MONITOR.
[2018-06-11] MEDS: DEXT 5% /NACL 0.9% 1,000 ML IV SCH ×2 (15:53→18:32)
--- NOTE | 2018-06-11 16:00 | NUR ---
PT'S TEMP 100.3. COOLING MEASURES IN PLACE. C/O ABDOMINAL AND BACK PAIN 02/04. WILL MEDICATE ORDERED. NO S/SX OF DISTRESS NOTED. FAMILY AT BEDSIDE. WILL CONTINUE TO MONITOR.
--- NOTE | 2018-06-11 18:20 | NUR ---
PT HAD MODERATE AMOUNT OF RUST COLORED BOWEL MOVEMENT. VSS. RESIDENT PHYSICIAN DR. MAST MADE AWARE. WILL FOLLOW UP ON ORDERS.
--- NOTE | 2018-06-11 18:29 | NUR ---
PT HAD FEVER 100.6. TORADOL ADMINISTERED ORDERED. WILL CONTINUE TO MONITOR.
--- NOTE | 2018-06-11 18:40 | NUR ---
DR. CHOE IN TO AND EXAMINE SEE PT. WILL FOLLOW UP ON ORDERS.
--- NOTE | 2018-06-11 18:56 | NUR ---
RECHECKED TEMP. AND IT IS 98.7. WILL CONTINUE TO MONITOR.
--- NOTE | 2018-06-11 19:15 | NUR ---
REPORT GIVEN TO NIGHT NURSE FOR CONTINUITY OF CARE. PT IS IN STABLE CONDITION.
--- NOTE | 2018-06-11 19:17 | NUR ---
RECIEVED REPORT FROM AM SHIFT. PT AFEBRILE. AOX4. PERSON, PLACE, TIME. ABLE TO VERBALIZE NEEDS. FOLLOWS COMMANDS. LUNG SOUNDS CLEAR BILATERALLY. ON ROOM AIR. SINUS TACH ON MONITOR. NO CHEST PAIN NO EDEMA NO JVD NOTED. S1S2 SOUNDS PRESENT. ON CLEAR LIQUID DIET. ABD SOFT NONDISTENDED. GALL BLADDER DRAIN TO RIGHT ABD NOTED. PT. CONTINENT TO BOWEL AND BLADDER. URINE BRADLEY, CLEAR, NO FOUL ODOR NOTED. IV SITE L HAND 20G. FLUIDS D5NS @ 50 ML/HR. SKIN INTACT. BED IN LOWEST POSITION. CALL LIGHT WITHIN REACH. FAMILY AT BEDSIDE. WILL CONTINUE TO MONITOR.
--- NOTE | 2018-06-11 19:28 | NUR ---
PT C/O PAIN 03/07 TO BACK AND ABD. ADMINISTERED DILAUDID 1MG/ML IVP.
--- NOTE | 2018-06-11 20:40 | NUR ---
DR. LEY AT BEDSIDE AT THIS TIME TO EVALUATE PT. WILL FOLLOW UP ANY ADDITIONAL ORDERS.
--- NOTE | 2018-06-11 21:40 | NUR ---
DR. GUTIERRES AT BEDSIDE. UPDATED ON PTS CURRENT CONDITION. WILL CONTINUE TO FOLLOW ANY ADDITIONAL ORDERS.
--- NOTE | 2018-06-11 22:57 | NUR ---
DR. CHOE AT BEDSIDE AT THIS TIME TO EXPLAIN PROCEDURE.
--- NOTE | 2018-06-11 23:44 | NUR ---
PT C/O PAIN 03/07 TO BACK AND ABD. ADMINISTERED DILAUDID 1MG/ML IVP.
[2018-06-12] VITALS (12 sets, daily range): BP systolic 123–147; BP diastolic 62–88
--- NOTE | 2018-06-12 00:16 | NUR ---
PT RESTING WATCHING TV. AFEBRILE AT THIS TIME.
--- NOTE | 2018-06-12 02:15 | NUR ---
PT C/O PAIN 7/10 IN BACK AT THIS TIME. WILL ADMINISTER DILAUDID IVP
[2018-06-12] MEDS: HYDROmorphone 1 MG/ML AMP IVP PRN ×7 (02:19→22:13)
--- NOTE | 2018-06-12 04:00 | NUR ---
PT RESTING IN BED. BED IN LOWEST POSITION CALL LIGHT WITHIN REACH
[2018-06-12] MEDS: MEROPENEM 1,000 MG in NACL 0.9% 100 ML IV SCH ×3 (05:28→20:10)
--- NOTE | 2018-06-12 05:28 | NUR ---
PT C/O ACHING PAIN 8/10 TO BACK AND ABDOMEN. ADMINISTERED DILAUDID IVP
--- NOTE | 2018-06-12 05:40 | NUR ---
PT HAD SMALL BM AT THIS TIME. BROWN, LOOSE CONSISTENCY.
--- NOTE | 2018-06-12 05:46 | NUR ---
REFUSED AM CARE AND ORAL CARE AT THIS TIME. WOULD PREFER AM ADLS AT A LATER TIME IN SHIFT.
--- NOTE | 2018-06-12 06:10 | NUR ---
LAB AT BEDSIDE AT THIS TIME
--- NOTE | 2018-06-12 06:28 | NUR ---
DR. KING AT BEDSIDE AT THIS TIME
[2018-06-12 06:54] LABS: HEMOGLOBIN 8.6 g/dL (12.0-18.0); MEAN CORPUSCULAR HEMOGLOBIN 30 pg (27-31); MEAN CORPUSCULAR HGB CONC 33 g/dL (33-37); PLATELET COUNT (AUTO) 504 K/uL (140-450); RED BLOOD CELL COUNT(AUTO) 2.88 MIL/uL (4.20-6.10)
[2018-06-12 07:13] LABS: ANION GAP 9.1 (8-16); CARBON DIOXIDE 28.5 mmol/L (21-32); CREATININE 0.8 mg/dL (0.7-1.3); POTASSIUM 3.6 mmol/L (3.5-5.1)
[2018-06-12 07:17] LABS: LYMPHOCYTES % (MANUAL) 6 % (20-46); MONOCYTES % (MANUAL) 9 % (5-12)
[2018-06-12 07:18] LABS: PHOSPHORUS 3.7 mg/dL (2.5-4.9)
--- NOTE | 2018-06-12 07:23 | NUR ---
ENDORSED CARE TO INCOMING SHIFT FOR CONTINUITY OF CARE. BED IN LOWEST POSITION. FAMILY AT BEDSIDE.
--- NOTE | 2018-06-12 07:24 | NUR ---
RECEIVED REPORT FROM DAIRY SCIENTIST RN. A/O X4. ST ON MONITOR. ABLE TO MAKE NEEDS KNOWN. LUNGS CLEAR. PERIPHERAL LINE NOTED ON LEFT HAND INTACT LINE. D5%NS RUNNING AT 50 ML/HR. BRUISE NOTED ON LEFT FOREARM. ABDOMEN SOFT, ROUND AND TENDERNESS PRESENT. ACTIVE BOWEL SOUND. RT GB DRAINAGE NOTED COVERED WITH DRESSING, INTACT. SKIN INTACT. DENIES PAIN. KEPT HOB ELEVATED. CALL LIGHT WITHIN REACH. BED IN LOW POSITION LOCKED. WILL CONTINUE TO MONITOR.
--- NOTE | 2018-06-12 08:05 | NUR ---
PT NOTED WITH ELEVATED BODY TEMPERATURE UP TO 100.0 DEGREE F. EXTRA CLOTHES REMOVED. COLD SPONGING PROVIDED. WILL CONTINUE TO MONITOR.
[2018-06-12] MEDS: PANTOPRAZOLE 40 MG INJ VIAL IVP SCH (08:23)
[2018-06-12] MEDS: MENTHOL/METHYL 10%-15% 114 GM TUBE TP SCH (08:24)
[2018-06-12] MEDS: FLUTICASONE NASAL 50 MCG/ACTUATION 16 GM BTL NS SCH (08:24)
[2018-06-12] MEDS: CLINICAL MONITORING MC SCH (08:25)
--- NOTE | 2018-06-12 09:09 | NUR ---
PT DID SPONGE BATH AND ORAL CARE INDEPENDENTLY.
[2018-06-12] MEDS ORDERED: PPN PER PHARMACY MC PRN (10:10)
[2018-06-12] MEDS: KETOROLAC 30 MG/ML VIAL IVP PRN (10:44)
--- NOTE | 2018-06-12 11:13 | NUR ---
PT RESTING IN BED, WATCHING TV. NO C/O PAIN. CONTINUE ON COLD SPONGING FOR FEVER MANAGEMENT. ST ON MONITOR. AT BED SIDE.
--- NOTE | 2018-06-12 14:58 | NUR ---
PT NOTED WITH ELEVATED BODY TEMPERATURE UP TO 100.1. REMOVED EXTRA CLOTHES. ICE PACK PROVIDED. CONTINUE COLD SPONGING.
--- NOTE | 2018-06-12 16:00 | NUR ---
FEVER DECREASED TO 98.9 DEGREE F. PT RESTING IN BED, AWAKE. NO C/O ABDOMINAL PAIN. SLIGHT ELEVATION OF HR ON MONITOR. BP 129 77. NO N/V NOTED. AT THE BED SIDE. CONTINUE TO MONITOR.
--- NOTE | 2018-06-12 18:13 | NUR ---
PT SEEN BY DR. GUTIERRES. UPDATED PT CONDITION AND FEVER.
[2018-06-12] MEDS: DEXT 5% /NACL 0.9% 1,000 ML IV SCH (18:55)
--- NOTE | 2018-06-12 19:05 | NUR ---
ENDORSED TO PEER TUTOR RN FOR CONTINUITY OF CARE. PT ON STABLE.
--- NOTE | 2018-06-12 19:08 | NUR ---
RECEIVED REPORT FROM AM SHIFT. PT AO X4. ABLE TO VERBALIZE NEEDS. FOLLOWS COMMANDS. AFEBRILE. EQUAL MOLDER PIPE COVERING BILAT. LUNG SOUNDS CLEAR BILAT. EVEN UNLABORED BREATHING. ON ROOM AIR. SINUS RHYTHM TO SINUS TACH ON MONITOR. NO JVD, NO EDEMA NOTED. PERIPHERAL PULSES PRESENT X 4 EXTREMITIES. ABD SOFT, NON DISTENDED. BOWEL SOUNDS ACTIVE X4 QUADRANTS. BLADDER NONDISTENDED. USES URINAL BEDSIDE. URINE CLEAR, BRADLEY, NONMALODOROUS. IV SITE L HAND 20G. DRESSING INTACT. IV SITE RIGHT AC 18G. DRESSING INTACT. SKIN INTACT. MUCOUS MEMBRANES MOIST. STEADY GAIT. AMBULATORY. BED IN LOWEST POSITION. CALL LIGHT WITHIN REACH. FAMILY AT BEDSIDE.
[2018-06-12] MEDS ORDERED: DEXTROSE IV SCH ×4 (20:00)
[2018-06-12] MEDS ORDERED: MULTIVITAMIN IV SCH ×4 (20:00)
[2018-06-12] MEDS ORDERED: AMINO ACIDS 8.5% IV SCH ×4 (20:00)
[2018-06-12] MEDS ORDERED: [UNRECOGNIZED DRUG - OTHER] IV SCH ×4 (20:00)
[2018-06-12] MEDS ORDERED: INSULIN LISPRO SLIDING SCALE 100 UNITS/ML VIAL SUBQ PRN (20:00)
--- NOTE | 2018-06-12 20:10 | NUR ---
STARTED PT ON TPN AT THIS TIME AT 50ML/HR.
--- NOTE | 2018-06-12 21:32 | NUR ---
FAMILY AT BEDSIDE AT THIS TIME.
--- NOTE | 2018-06-12 22:13 | NUR ---
PT C/O INTERMITTENT PAIN 02/04 TO BACK. ADMINISTERED DILAUDID IVP AT THIS TIME.
[2018-06-12] MEDS: BLOOD GLUCOSE MONITORING 1 DEV DEV MC SCH (23:50)
[2018-06-13] VITALS (18 sets, daily range): BP systolic 96–142; BP diastolic 43–95
[2018-06-13] MEDS: HYDROmorphone 1 MG/ML AMP IVP PRN ×8 (01:19→23:42)
--- NOTE | 2018-06-13 01:27 | NUR ---
PT C/O INTERMITTENT PAIN 02/04 TO ABD AND BACK. ADMINISTERED DILAUDID IVP
--- NOTE | 2018-06-13 03:15 | NUR ---
PT C/O CONTINUOUS ACHING PAIN TO ABD 9/10. ADMINISTERED DILAUDID 1MG IVP AT THIS TIME.
[2018-06-13] MEDS: MEROPENEM 1,000 MG in NACL 0.9% 100 ML IV SCH ×3 (04:01→20:15)
--- NOTE | 2018-06-13 05:10 | NUR ---
LAB AT BEDSIDE AT THIS TIME
[2018-06-13 05:44] LABS: BASOPHILS % (AUTO) 0.3 % (0.0-2.0); EOSINOPHILS # (AUTO) 0.1 K/uL (0-0.4); EOSINOPHILS % (AUTO) 0.7 % (0.0-4.0); HEMATOCRIT 25.3 % (36-52); HEMOGLOBIN 8.3 g/dL (12.0-18.0); LYMPHOCYTES # (AUTO) 1.5 K/uL (2.0-11.5); MEAN CORPUSCULAR HEMOGLOBIN 30 pg (27-31); MEAN CORPUSCULAR HGB CONC 33 g/dL (33-37); MEAN CORPUSCULAR VOLUME 90.7 fL (80-94); MONOCYTES # (AUTO) 1.6 K/uL (0.8-1.0); NEUTROPHILS # (AUTO) 10.4 K/uL (1.8-7.7); PLATELET COUNT (AUTO) 556 K/uL (140-450); RED BLOOD CELL COUNT(AUTO) 2.79 MIL/uL (4.20-6.10); WHITE BLOOD COUNT (AUTO) 13.7 K/uL (4.8-10.8)
--- NOTE | 2018-06-13 05:50 | NUR ---
PROVIDED AM CARE AT THIS TIME. PT PERFORMS ADLS INDEPENDENTLY
[2018-06-13] MEDS: BLOOD GLUCOSE MONITORING 1 DEV DEV MC SCH ×3 (06:09→17:51)
[2018-06-13 06:31] LABS: ANION GAP 13.4 (8-16); CARBON DIOXIDE 28.6 mmol/L (21-32); CREATININE 0.8 mg/dL (0.7-1.3)
[2018-06-13 06:34] LABS: MAGNESIUM 2.2 mg/dL (1.8-2.4); PHOSPHORUS 4.5 mg/dL (2.5-4.9)
--- NOTE | 2018-06-13 07:15 | NUR ---
ENDORSED CARE TO INCOMING SHIFT FOR CONTINUITY OF CARE. BED IN LOWEST POSITION. CALL LIGHT WITHIN REACH.
--- NOTE | 2018-06-13 08:00 | NUR ---
INITIAL SHIFT ASSESSMENT DONE (SEE ASSESSMENT PART). AAOX4. NO C/O PAIN OR DYSPNEA. O2 SAT 95-97% ON ROOM AIR. ST ON MONITOR. SBP IN 110'S-120'S. NO ECTOPY NOTED. HOB ELEVATED. UPDATED OF PLAN OF CARE. WILL CONTINUE TO MONITOR.
[2018-06-13] MEDS: PANTOPRAZOLE 40 MG INJ VIAL IVP SCH (08:59)
[2018-06-13] MEDS: MENTHOL/METHYL 10%-15% 114 GM TUBE TP SCH (09:00)
[2018-06-13] MEDS: FLUTICASONE NASAL 50 MCG/ACTUATION 16 GM BTL NS SCH (09:00)
[2018-06-13] MEDS: CLINICAL MONITORING MC SCH (09:00)
--- NOTE | 2018-06-13 09:53 | NUR ---
C/O SEVERE GENERALIZED PAIN OF THE ABDOMEN. GIVEN DILAUDID 1 MG IVP. WILL CONTINUE TO MONITOR.
--- NOTE | 2018-06-13 10:00 | NUR ---
RESTING IN BED WITH AT BEDSIDE. NO C/O PAIN OR DYSPNEA. O2 SAT 95-97% ON ROOM AIR. SR ON MONITOR. SBP IN 120'S. NO ECTOPY NOTED. HOB ELEVATED. WILL CONTINUE TO MONITOR.
--- NOTE | 2018-06-13 11:00 | NUR ---
TRANSPORTED TO CT SCAN DEPT BY BED WITH PORTABLE METAL SHAPING MACHINE OPERATOR. ACCOMPANIED BY TWO CT SCAN TECHS AND ME.
--- NOTE | 2018-06-13 11:40 | NUR ---
BACK FROM CT SCAN DEPT. TOLERATED THE PROCEDURE (CT SCAN GUIDED ASPIRATION OF PANCREATIC NECROSIS) WELL. SPECIMEN SEND TO THE LAB BY HOSIERY OPERATORWILY BROOKS.
--- NOTE | 2018-06-13 12:00 | NUR ---
REASSESSMENT DONE. AAXO4. RESTING IN BED WITH AT BEDSIDE. NO C/O PAIN OR DYSPNEA. O2 SAT 93-98% ON ROOM AIR. SR ON MONITOR. SBP IN 120'S-130'S. NO ECTOPY NOTED. HOB ELEVATED. UPDATED OF PLAN OF CARE. WILL CONTINUE TO MONITOR.
--- NOTE | 2018-06-13 12:20 | NUR ---
CM NOTE PER CRISTIANA OF [facility] CTR TRANSFER UNIT PH# [phone], THEIR DOCTOR DR. FERRER IS NOT ACCEPTING PATIENT BECAUSE THE DOCTOR THINKS THE PROPOSED SURGERY CAN BE DONE AT [facility]. PER [place]AGRO, ADMISSIONS NURSE OF [facility] PH# [phone], SAID THAT THEY STILL HAVE THE INQUIRY WITH THEM, NO BEDS AVAILABLE. CRUTCHER HELPER OF CM, GRIFFIN, OF [facility] H[facility] TRANSFER/CM DEPT PH# [phone] REQUESTED FOR FACESHEET, H&P, LATEST PROGRESS NOTE BE FAXED TO HER AT [phone]. I GAVE HER THE NUMBER TO THE NURSING STATION WHERE PATIENT IS IN CASE SHE CALLS BACK AT A LATER TIME. Addendum: 06/13/18 at 1228 by Chela Tate CM FAXED PACKET TO [facility] Addendum: 06/14/18 at 0841 by Chela Tate CM LATE ENTRY FOR 06/13/18 PER GRIFFIN OF [facility], NO BEDS AVAILABLE.
--- NOTE | 2018-06-13 12:20 | NUR ---
DR JUNIOR IS IN THE ROOM. MD UPDATED OF STATUS. MD TALK TO THE PATIENT AND . MD ALSO TALK TO THE RESIDENT MD. DR JUNIOR TOLD THE RESIDENT MD THAT THE PATIENT CAN GO TO TELEMETRY UNIT.
[2018-06-13] MEDS ORDERED: DEXTROSE IV SCH ×4 (13:07)
[2018-06-13] MEDS ORDERED: MULTIVITAMIN IV SCH ×4 (13:07)
[2018-06-13] MEDS ORDERED: [UNRECOGNIZED DRUG - OTHER] IV SCH ×4 (13:07)
[2018-06-13] MEDS ORDERED: AMINO ACIDS 8.5% IV SCH ×4 (13:07)
--- NOTE | 2018-06-13 13:47 | NUR ---
C/O SEVERE GENERALIZED PAIN OF THE ABDOMEN AGAIN AT THIS TIME. GIVEN DILAUDID 1 MG IVP. WILL CONTINUE TO MONITOR.
--- NOTE | 2018-06-13 14:00 | NUR ---
RESTING IN BED WITH AT BEDSIDE. NO C/O PAIN OR DYSPNEA. O2 SAT 93-96% ON ROOM AIR. SR ON MONITOR. SBP IN 110'S. NO ECTOPY NOTED. HOB ELEVATED. WILL CONTINUE TO MONITOR.
--- NOTE | 2018-06-13 14:25 | NUR ---
DR LEY IS IN THE ROOM. MD UPDATED OF STATUS. MD TALK TO THE PATIENT AND . NO NEW ORDER RECEIVE.
--- NOTE | 2018-06-13 14:37 | NUR ---
06/13/18 RD FOLLOW UP COMPLETED PLEASE REFER TO NUTRITION ASSESSMENT UNDER CARE ACTIVITY FOR ESTIMATED NUTRITIONAL NEEDS. 1.CONTINUE TPN: DEXTROSE 10%, AA 3.25%, LIPID 10% 110 ML, TOTAL 2400 ML OF VOLUME AT 100 ML/HR -THIS WILL PROVIDE 2400 ML OF VOLUME, 1238 KCAL, 78 GM OF PROTEIN WHICH MEETS 70% OF ESTIMATED KCAL NEEDS AND 92% OF ESTIMATED PROTEIN NEEDS. 2. RECOMMEND GRADUALLY ADVANCING TPN FORMULA TO MEET >75% OF ESTIMATED KCAL NEEDS OF 1750 KCAL/DAY. 3. RD TO FOLLOW-UP 2-3 DAYS, HIGH RISK SHANTELLE STEWART, KHUSHBOO
--- NOTE | 2018-06-13 16:00 | NUR ---
REASSESSMENT DONE. AAXO4. RESTING IN BED. NO C/O PAIN OR DYSPNEA. O2 SAT 95-100% ON ROOM AIR. SR ON MONITOR. SBP IN 120'S. NO ECTOPY NOTED. HOB ELEVATED. UPDATED OF PLAN OF CARE. WILL CONTINUE TO MONITOR.
--- NOTE | 2018-06-13 17:08 | NUR ---
C/O SEVERE GENERALIZED PAIN OF THE ABDOMEN AGAIN AT THIS TIME. GIVEN DILAUDID 1 MG IVP. WILL CONTINUE TO MONITOR.
--- NOTE | 2018-06-13 18:00 | NUR ---
RESTING IN BED WITH AT BEDSIDE. NO C/O PAIN OR DYSPNEA. O2 SAT 94-97% ON ROOM AIR. SR ON MONITOR. SBP IN 90'S-120'S. NO ECTOPY NOTED. HOB ELEVATED. WILL CONTINUE TO MONITOR.
--- NOTE | 2018-06-13 19:10 | NUR ---
REPORT GIVEN TO INCOMING SLURRY PLANT OPERATOR RN, JUAN J BRADSHAW.
--- NOTE | 2018-06-13 19:30 | NUR ---
RECEIVED BEDSIDE REPORT FROM MORNING SHIFT RNSHERI, FOR CONTINUITY OF CARE. PT IS IN STABLE CONDITION AT THIS TIME. TEMP 99.6, RR= 22, RG=724/77, YH=679, O2 SAT 95%. ICE PACK PROVIDED PER PT REQUEST. PT AAOX4, ABLE TO RESPOND TO COMMANDS AND MAKE NEEDS KNOWN. ST ON METHODS SPECIALIST, ON ROOM AIR LUNG SOUNDS CLEAR ON BILATERAL UPPER/LOWER LOBES. BOWEL SOUNDS HYPOACTIVE ON X4 QUADRANT. 18 GAUGE RIGHT AC PIV INFUSING PPN AT 100ML/HR, LEFT 2O GAUGE PIV INUSING NS AT 10ML/HR TKO. SKIN IS INTACT, PT DENIES NAUSEA/VOMITTING, RATED PAIN 6/10. PT ABLE TO REPOSITION SELF IN BED. FALL RISK AND STANDARD PRECAUTIONS MAINTAINED. Addendum: 06/13/18 at 2221 by Elda Patel RN NO DRAINAGE NOTED ON RUQ.
--- NOTE | 2018-06-13 21:20 | NUR ---
DR. GUTIERRES AT BEDSIDE TO SEE PATIENT.
[2018-06-14] VITALS (8 sets, daily range): BP systolic 117–146; BP diastolic 60–82
[2018-06-14] MEDS: BLOOD GLUCOSE MONITORING 1 DEV DEV MC SCH ×5 (00:01→23:52)
--- NOTE | 2018-06-14 00:23 | NUR ---
PRN DILAUDED GIVEN, PT COMPLAINS OF PAIN 02/04, VSS.
--- NOTE | 2018-06-14 03:26 | NUR ---
PT SLEEPING, APPEARS TO BE WITHOUT DISTRESS.
[2018-06-14] MEDS: HYDROmorphone 1 MG/ML AMP IVP PRN ×7 (03:34→23:47)
--- NOTE | 2018-06-14 03:44 | NUR ---
PT WAKES UP C/O 02/04 BACK PAIN, WILL REPOSITION HIMSELF, URINE OUTPUT OF 150ML.
[2018-06-14] MEDS: MEROPENEM 1,000 MG in NACL 0.9% 100 ML IV SCH ×3 (04:07→20:51)
--- NOTE | 2018-06-14 04:30 | NUR ---
MORNING CARE PROVIDED TO PATIENT AT BEDSIDE, PT IS INDEPENDENT WITH CARES.
[2018-06-14 06:21] LABS: ANION GAP 15.2 (8-16); CARBON DIOXIDE 26.5 mmol/L (21-32); CREATININE 0.8 mg/dL (0.7-1.3); POTASSIUM 3.7 mmol/L (3.5-5.1); TOTAL BILIRUBIN 0.6 mg/dL (0.0-1.0)
[2018-06-14 06:22] LABS: ALBUMIN 2.2 g/dL (3.4-5.0); MAGNESIUM 2.5 mg/dL (1.8-2.4); PHOSPHORUS 4.1 mg/dL (2.5-4.9)
[2018-06-14 06:28] LABS: BASOPHILS # (AUTO) 0.1 K/uL (0.00-0.22); BASOPHILS % (AUTO) 0.3 % (0.0-2.0); EOSINOPHILS # (AUTO) 0.1 K/uL (0-0.4); EOSINOPHILS % (AUTO) 0.4 % (0.0-4.0); HEMATOCRIT 26.9 % (36-52); HEMOGLOBIN 8.9 g/dL (12.0-18.0); LYMPHOCYTES # (AUTO) 1.5 K/uL (2.0-11.5); LYMPHOCYTES % (AUTO) 9.2 % (20.5-51.1); MEAN CORPUSCULAR HEMOGLOBIN 30 pg (27-31); MEAN CORPUSCULAR HGB CONC 33 g/dL (33-37); MEAN CORPUSCULAR VOLUME 90.4 fL (80-94); MONOCYTES # (AUTO) 1.8 K/uL (0.8-1.0); MONOCYTES % (AUTO) 10.8 % (1.7-9.3); NEUTROPHILS # (AUTO) 13.1 K/uL (1.8-7.7); NEUTROPHILS % (AUTO) 79.3 % (42.2-75.2); PLATELET COUNT (AUTO) 678 K/uL (140-450); RED BLOOD CELL COUNT(AUTO) 2.98 MIL/uL (4.20-6.10); WHITE BLOOD COUNT (AUTO) 16.5 K/uL (4.8-10.8)
--- NOTE | 2018-06-14 07:20 | NUR ---
PROVIDED BEDSIDE REPORT TO MORNING SHIFT RNONUR, FOR CONTINUITY OF CARE, PT IN STABLE CONDITION AT THIS TIME.
--- NOTE | 2018-06-14 07:30 | NUR ---
RECEIVED BEDSIDE REPORT FROM NIGHT NURSE. PT IS AWAKE, AAOX4, ABLE TO MAKE NEEDS KNOWN AND FOLLOW COMMANDS. PT IS AFEBRILE. SINUS RHYTHM ON MONITOR. S1 S2 AUSCULTATED. ON ROOM AIR, BREATH SOUNDS CLEAR BILATERALLY. O2 SAT 97%, NO SOB NOTED. ABD SOFT, ROUND. BOWEL SOUNDS HYPOACTIVE. MINIMUM AMOUNT OF DRAINAGE NOTED IN GALL BLADDER DRAIN. PT STATED MILD ABDOMINAL PAIN 2/10. PERIPHERAL IVS G20 TO LEFT HAND AND G18 TO RIGHT ANTECUBITAL PATENT AND INTACT. PT IS RECEIVING PPN AT 100 ML/HR. SKIN INTACT, DRY AND WARM TO TOUCH. BED IN LOWEST POSITION. CALL LIGHT WITHIN REACH. WILL CONTINUE TO MONITOR.
--- NOTE | 2018-06-14 08:19 | NUR ---
DR. VILLEDA AND RESIDENT GROUP IN TO SEE PT. WILL FOLLOW UP ON ORDERS.
[2018-06-14] MEDS: PANTOPRAZOLE 40 MG INJ VIAL IVP SCH (09:25)
[2018-06-14] MEDS: CLINICAL MONITORING MC SCH (09:26)
[2018-06-14] MEDS: MENTHOL/METHYL 10%-15% 114 GM TUBE TP SCH (09:26)
[2018-06-14] MEDS: FLUTICASONE NASAL 50 MCG/ACTUATION 16 GM BTL NS SCH (09:26)
--- NOTE | 2018-06-14 09:30 | NUR ---
MEDICATIONS ADMINISTERED ORDERED. PT TOLERATED WELL. AT BEDSIDE. PT WATCHING TV. NO S/SX OF ACUTE DISTRESS NOTED AT THIS TIME.
--- NOTE | 2018-06-14 10:52 | NUR ---
DR. LEY IN TO SEE AND EXAMINE PT. WILL FOLLOW UP ON ORDERS.
--- NOTE | 2018-06-14 12:55 | NUR ---
PT IS DIAPHORETIC. TEMP 97.5. VITAL SIGNS STABLE. NO SOB OR ACUTE DISTRESS NOTED.
--- NOTE | 2018-06-14 16:00 | NUR ---
PT SEEN BY DR. JUNIOR. WILL FOLLOW UP ON ORDERS.
--- NOTE | 2018-06-14 18:20 | NUR ---
FAMILY AT BEDSIDE. NO C/O PAIN OR DISCOMFORT. VSS. WILL CONTINUE TO MONITOR.
--- NOTE | 2018-06-14 19:27 | NUR ---
REPORT GIVEN TO MAKEUP SALES ADVISOR RN AT BEDSIDE. PT IS IN STABLE CONDITION.
--- NOTE | 2018-06-14 19:30 | NUR ---
RECEIVED REPORT FROM RN FOR CONTINUITY OF CARE. PT AWAKE. ALERT AND ORIENTED X4. HE IS AWARE THAT HE WILL MOVE TO A DIFFERENT ROOM. AFEBRILE. NO C/O PAIN AT THIS TIME. RESPIRATIONS ARE EVEN AND UNLABORED. SR ON MONITOR. LUNG SOUNDS CLEAR. PULSES ARE PALPABLE IN ALL EXTREMITIES. ABDOMEN ROUND AND NONDISTENDED. NO DRAINAGE NOTED FROM THE GB DRAIN. PT HAS 2 PERIPHERAL IV ACCESS. RIGHT AC 18G AND RIGHT FOREARM 20G. ALL LINES ARE PATENT, INTACT, AND ASYMPTOMATIC. WILL CONTINUE TO MONITOR PT.
--- NOTE | 2018-06-14 19:45 | NUR ---
PT TRANSFERRED TO [facility]. REPORT GIVEN TO RN, DONNA, FOR CONTINUITY OF CARE. PT AAOX4. ABLE TO MAKE HIS NEEDS KNOWN. PT IN STABLE CONDITION. ALL BELONGINGS ARE WITH THE PT. ALL MEDICATIONS IN THE CASSETTE AND THE REFRIGERATOR IS GIVEN TO THE RN WELL. CHART GIVEN TO CHARGE NURSE.
--- NOTE | 2018-06-14 19:46 | NUR ---
RECEIVED REPORT FOR ICU NURSE AT BEDSIDE FOR CONTINUITY OF CARE. PT TRANSFER VIA WHEELCHAIR. PT AMBULATORY. PT IV NOTED RAC 18G AND RFA SALINE LOCK.PT HAS GALLBLADDER DRAIN BAG ON RIGHT SIDE. NO SOB NO S/S OF DISTRESS ON RA. BED LOWERED PT ORIENTED TO ROOM. CALL LIGHT WITHIN REACH.
[2018-06-14] MEDS: [UNRECOGNIZED DRUG - OTHER] IV SCH ×4 (20:52)
[2018-06-14] MEDS: DEXTROSE IV SCH ×4 (20:52)
[2018-06-14] MEDS: AMINO ACIDS 8.5% IV SCH ×4 (20:52)
[2018-06-14] MEDS: MULTIVITAMIN IV SCH ×4 (20:52)
--- NOTE | 2018-06-14 20:52 | NUR ---
STARTED TPN FEEDING AT 2051 RATE 80ML/HR. TPN EXPIRES 06/15/182051.
--- NOTE | 2018-06-14 21:13 | NUR ---
ADMIN PAIN MED 1 HR AGO. PT STATED 10/05 DECREASED PAIN TOLERABLE AT THIS TIME.
[2018-06-15] VITALS: BP 134/78
--- NOTE | 2018-06-15 00:47 | NUR ---
ADMIN PAIN MED 1 HR AGO. NO PAIN AT THIS TIME. PT SLEEPING WILL CONTINUE TO MONITOR.
[2018-06-15] MEDS: HYDROmorphone 1 MG/ML AMP IVP PRN ×6 (02:53→19:53)
[2018-06-15 04:00] VITALS: BP 121/79
--- NOTE | 2018-06-15 04:00 | NUR ---
ENDORSED REPORT TO DAYSHIFT NURSE AT BEDSIDE FOR CONTINUITY OF CARE.
[2018-06-15] MEDS: BLOOD GLUCOSE MONITORING 1 DEV DEV MC SCH ×4 (05:27→23:56)
[2018-06-15] MEDS: MEROPENEM 1,000 MG in NACL 0.9% 100 ML IV SCH ×2 (05:27→13:51)
[2018-06-15 07:08] LABS: BASOPHILS % (AUTO) 0.3 % (0.0-2.0); EOSINOPHILS # (AUTO) 0.1 K/uL (0-0.4); EOSINOPHILS % (AUTO) 0.5 % (0.0-4.0); HEMATOCRIT 27.3 % (36-52); HEMOGLOBIN 8.9 g/dL (12.0-18.0); LYMPHOCYTES # (AUTO) 1.5 K/uL (2.0-11.5); LYMPHOCYTES % (AUTO) 9.9 % (20.5-51.1); MEAN CORPUSCULAR HEMOGLOBIN 30 pg (27-31); MEAN CORPUSCULAR HGB CONC 33 g/dL (33-37); MEAN CORPUSCULAR VOLUME 90.3 fL (80-94); MONOCYTES # (AUTO) 1.6 K/uL (0.8-1.0); MONOCYTES % (AUTO) 10.6 % (1.7-9.3); NEUTROPHILS # (AUTO) 11.9 K/uL (1.8-7.7); NEUTROPHILS % (AUTO) 78.7 % (42.2-75.2); PLATELET COUNT (AUTO) 719 K/uL (140-450); RED BLOOD CELL COUNT(AUTO) 3.03 MIL/uL (4.20-6.10); RED CELL DISTRIBUTION WIDTH 13.2 % (11.6-13.7); WHITE BLOOD COUNT (AUTO) 15.2 K/uL (4.8-10.8)
[2018-06-15 07:15] LABS: ANION GAP 11.9 (8-16); CARBON DIOXIDE 28.5 mmol/L (21-32); CREATININE 0.7 mg/dL (0.7-1.3); POTASSIUM 4.4 mmol/L (3.5-5.1)
[2018-06-15 07:26] LABS: MAGNESIUM 2.5 mg/dL (1.8-2.4); PHOSPHORUS 4.6 mg/dL (2.5-4.9)
--- NOTE | 2018-06-15 07:35 | NUR ---
RECEIVED REPORT FROM MAPPER NURSE. PATIENT LYING DOWN IN BED SLEEPING, AROUSABLE BY VOICE. NO DISTRESS NOTED. DENIES ANY PAIN AT THIS TIME. AAOX4, CALM, COOPERATIVE, SKIN COLOR APPROPRIATE TO ETHNICITY, WARM TO TOUCH. HAS RIGHT SIDE GALLBLADDER DRAINAGE NOTED. IV SITE INTACT, PATENT, AND INFUSING IVF PER MD ORDERS. REVIEWED PLAN OF CARE WITH PATIENT. PATIENT VERBALIZED UNDERSTANDING. SAFETY MEASURES IN PLACE, CALL LIGHT WITHIN REACH. WILL CONTINUE TO MONITOR.
[2018-06-15 08:00] VITALS: BP 122/77
[2018-06-15] MEDS: PANTOPRAZOLE 40 MG INJ VIAL IVP SCH (09:27)
[2018-06-15] MEDS: CLINICAL MONITORING MC SCH (09:28)
[2018-06-15] MEDS: FLUTICASONE NASAL 50 MCG/ACTUATION 16 GM BTL NS SCH (09:28)
[2018-06-15] MEDS: MENTHOL/METHYL 10%-15% 114 GM TUBE TP SCH (09:28)
--- NOTE | 2018-06-15 09:35 | NUR ---
PATIENT LYING DOWN IN BED COMFORTABLY, FAMILY MEMBER AT BEDSIDE. COMPLAINS OF PAIN, DILAUDID GIVEN. OTHER SCHEDULED MEDICATIONS DUE GIVEN. SAFETY MEASURES IN PLACE, CALL LIGHT WITHIN REACH. WILL CONTINUE TO MONITOR.
[2018-06-15 12:00] VITALS: BP 112/76
--- NOTE | 2018-06-15 12:21 | NUR ---
06/15/18 RD FOLLOW UP COMPLETED PLEASE REFER TO NUTRITION ASSESSMENT UNDER CARE ACTIVITY FOR ESTIMATED NUTRITIONAL NEEDS. 1. CONTINUE TPN: DEXTROSE 10%, AA 4.25%, LIPID 20% AT 250ML VIA PERIPHERAL LINE - THIS WILL PROVIDE 1479 KCALS, 81 G PROTEIN, TOTAL VOLUME 1920 ML, GIR 1.68 GM CHO/KG/MIN. THIS WILL MEET 84% OF ESTIMATED ENERGY NEEDS AND 97% OF ESTIMATED PROTEIN NEEDS. 2. RD TO FOLLOW UP ON DIET EDUCATION POST TPN 3. RD TO FOLLOW-UP 2-3 DAYS, HIGH RISK SHANTELLE STEWART, RD
[2018-06-15 16:00] VITALS: BP 128/66
--- NOTE | 2018-06-15 16:05 | NUR ---
PATIENT LYING DOWN IN BED WATCHING TV. COMPLAINS OF PAIN, DILAUDID GIVEN PER MD ORDERS. WILL CONTINUE TO MONITOR.
--- NOTE | 2018-06-15 18:00 | NUR ---
PATIENT TALKING WITH FAMILY MEMBERS AT BEDSIDE. NO DISTRESS NOTED. CONDITION UNCHANGED. WILL CONTINUE TO MONITOR.
--- NOTE | 2018-06-15 19:35 | NUR ---
RECEIVED REPORT FROM DAY SHIFT NURSEJOSE AT PT BEDSIDE. PT IN STABLE CONDITION. PT IS AT BEDSIDE. PT IS AA0X4. PT IS RA WITH RESPIRATIONS EVEN AND UNLABORED. IV ACCESS IN R AC 18G WITH TPN RUNNING PER MD ORDERS AND R FA 20G SALINE LOCKED. IVS ARE PATENT AND INTACT. PT SKIN IS INTACT. BED IS LOCKED, LOW POSITION WITH SIDE RAILS UP X2. BOARD UPDATED. CALL LIGHT IS WITHIN REACH. WILL CONTINUE OT MONITOR PT.
--- NOTE | 2018-06-15 19:35 | NUR ---
GAVE REPORT TO CANDY CUTTER HAND NURSE FOR CONTINUITY OF CARE. PATIENT IN STABLE CONDITION.
--- NOTE | 2018-06-15 19:53 | NUR ---
PT C/O PAIN, DILAUDID GIVEN. PT C/O PAIN IN R AC IV SITE. IV REMOVED. NEW BAG OF TPN STARTED IN R FA. PT TOLERATED WELL. NO S/SX OF DISTRESS. WILL CONTINUE TO MONITOR.
[2018-06-15 20:00] VITALS: BP 126/77
[2018-06-15] MEDS ORDERED: DEXTROSE IV SCH ×4 (20:00)
[2018-06-15] MEDS ORDERED: AMINO ACIDS IV SCH ×4 (20:00)
[2018-06-15] MEDS ORDERED: [UNRECOGNIZED DRUG - OTHER] IV SCH ×4 (20:00)
[2018-06-15] MEDS ORDERED: MULTIVITAMIN IV SCH ×4 (20:00)
[2018-06-15] MEDS: [UNRECOGNIZED DRUG - OTHER] IV SCH ×4 (21:14)
[2018-06-15] MEDS: DEXTROSE IV SCH ×4 (21:14)
[2018-06-15] MEDS: MULTIVITAMIN IV SCH ×4 (21:14)
[2018-06-15] MEDS: AMINO ACIDS 8.5% IV SCH ×4 (21:14)
--- NOTE | 2018-06-15 22:00 | NUR ---
PT RESTING COMFORTABLY IN BED WITH PT AT BEDSIDE. NO S/SX OF DISTRESS. WILL CONTINUE TO MONITOR.
[2018-06-15] MEDS: ZOLPIDEM 5 MG TAB PO PRN (23:56)
--- NOTE | 2018-06-15 23:56 | NUR ---
PT C/O PAIN, MORPHINE GIVEN. PT UNABLE TO SLEEP AND REQUESTED SOMETHING TO HELP, AMBIEN GIVEN. BS CHECKED, 109. NO COVERAGE NEEDED PER MD ORDERS. ALL OTHER PT NEEDS ARE MET AT THIS TIME. WILL CONTINUE TO MONITOR.
[2018-06-16] VITALS: BP 125/78
--- NOTE | 2018-06-16 00:56 | NUR ---
PT NOW ASLEEP. NO S/SX OF DISTRESS. WILL CONTINUE TO MONITOR.
[2018-06-16 04:00] VITALS: BP 123/76
[2018-06-16] MEDS ORDERED: MORPHINE SULFATE 4 MG/ML SYR IVP SCH ×2 (04:00)
--- NOTE | 2018-06-16 04:07 | NUR ---
PT C/O PAIN, MORPHINE GIVEN. PT TOLERATED WELL. NO S/SX OF DISTRESS. WILL CONTINUE TO MONITOR.
[2018-06-16] MEDS: BLOOD GLUCOSE MONITORING 1 DEV DEV MC SCH ×3 (05:25→18:16)
--- NOTE | 2018-06-16 05:26 | NUR ---
FLORENTIN CHECKED, 113. NO COVERAGE NEEDED PER MD ORDERS. Addendum: 06/16/18 at 0526 by Emilee Rodas RN 30ML EMPTIED FROM GALLBLADDER DRAIN BAG.
[2018-06-16 06:45] LABS: ANION GAP 12.2 (8-16); CARBON DIOXIDE 26.2 mmol/L (21-32); CREATININE 0.7 mg/dL (0.7-1.3); POTASSIUM 4.4 mmol/L (3.5-5.1)
[2018-06-16 07:06] LABS: BASOPHILS # (AUTO) 0.1 K/uL (0.00-0.22); BASOPHILS % (AUTO) 0.3 % (0.0-2.0); EOSINOPHILS # (AUTO) 0.1 K/uL (0-0.4); EOSINOPHILS % (AUTO) 0.7 % (0.0-4.0); HEMATOCRIT 27.5 % (36-52); HEMOGLOBIN 9.2 g/dL (12.0-18.0); LYMPHOCYTES # (AUTO) 1.5 K/uL (2.0-11.5); LYMPHOCYTES % (AUTO) 9.6 % (20.5-51.1); MEAN CORPUSCULAR HEMOGLOBIN 30 pg (27-31); MEAN CORPUSCULAR HGB CONC 34 g/dL (33-37); MEAN CORPUSCULAR VOLUME 89.7 fL (80-94); MONOCYTES # (AUTO) 1.4 K/uL (0.8-1.0); MONOCYTES % (AUTO) 8.6 % (1.7-9.3); NEUTROPHILS # (AUTO) 12.9 K/uL (1.8-7.7); NEUTROPHILS % (AUTO) 80.8 % (42.2-75.2); PLATELET COUNT (AUTO) 728 K/uL (140-450); RED BLOOD CELL COUNT(AUTO) 3.07 MIL/uL (4.20-6.10); RED CELL DISTRIBUTION WIDTH 13.2 % (11.6-13.7); WHITE BLOOD COUNT (AUTO) 15.9 K/uL (4.8-10.8)
[2018-06-16 07:15] LABS: MAGNESIUM 2.4 mg/dL (1.8-2.4)
--- NOTE | 2018-06-16 07:32 | NUR ---
ENDORSED PT TO DAY SHIFT NURSE FOR CONTINUITY OF CARE. PT IN STABLE CONDITION.
--- NOTE | 2018-06-16 07:33 | NUR ---
RECEIVED REPORT FROM PM NURSE AT BEDSIDE. PT UP AND WASHIONG HSI HAND. PT HAS IV PERIPHERAL LINE 20 G, TPN RUNNING AT 80 ML/HR. HAS DRAINAGE BAG FORM GALL BLADDER ON RT LOWER ABD QUADRANT. PT DENIES ANY DISCOMFORT. IS NPO, HAS PROCEDURE TODAY AT 1030. NO SIGN OF DISTRESS NOTED. WILL CONTINUE TO MONITOR PT.
[2018-06-16 08:00] VITALS: BP 119/72
[2018-06-16] MEDS: MENTHOL/METHYL 10%-15% 114 GM TUBE TP SCH (09:00)
[2018-06-16] MEDS: FLUTICASONE NASAL 50 MCG/ACTUATION 16 GM BTL NS SCH (09:00)
[2018-06-16] MEDS: PANTOPRAZOLE 40 MG INJ VIAL IVP SCH (09:06)
--- NOTE | 2018-06-16 09:30 | NUR ---
ADMINISTERED MEDS TO PT ORDERED. HAS OINTMENT AND FLONASE SPRAY AT BEDSIDE. STATES HAD USED IN AM. TOLERATED WELL. TPN PUT ON HOLD PER MD ORDER FOR OR. O SIGN OF DISTRESS NOTED. WILL CONTINUE TO MONITOR PT.
--- NOTE | 2018-06-16 10:24 | NUR ---
PT OFF THE UNIT FOR OR. WENT WITH OR NURSE, PT IN STABLE CONDITION.
[2018-06-16] MEDS: BUPIVACAINE-MPF/EPI 0.25% 30 ML VIAL INJ ONE (10:25)
[2018-06-16] MEDS ORDERED: HYDROmorphone PFS 2 MG/ML SYR ONE (10:55)
[2018-06-16] MEDS ORDERED: fentaNYL 0.05 MG/ML VIAL ONE (10:55)
[2018-06-16] MEDS ORDERED: NEOSTIGMINE 1:1000 10 MG/10 ML VIAL ONE (11:05)
[2018-06-16] MEDS ORDERED: GLYCOPYRROLATE 0.2 MG/ML VIAL ONE (11:05)
[2018-06-16] MEDS ORDERED: ROCURONIUM 50 MG/5 ML VIAL IV ONE (11:05)
[2018-06-16] MEDS ORDERED: DEXAMETHASONE 4 MG/ML VIAL ONE (11:05)
[2018-06-16] MEDS ORDERED: SUCCINYLCHOLINE CHLORIDE 200 MG/10 ML VIAL IVP ONE (11:05)
[2018-06-16] MEDS ORDERED: PROPOFOL 200 MG/20 ML VIAL IV ONE (11:05)
[2018-06-16] MEDS ORDERED: SEVOFLURANE 250 ML BTL INH ONE (11:05)
[2018-06-16] MEDS ORDERED: ONDANSETRON 4 MG/2 ML VIAL ONE (11:05)
[2018-06-16] MEDS ORDERED: ceFAZolin 1,000 MG VIAL ONE (11:11)
[2018-06-16] MEDS ORDERED: MORPHINE SULFATE 4 MG/ML SYR IVP PRN (11:30)
[2018-06-16] MEDS ORDERED: BUPIVACAINE-MPF 0.25% 30 ML VIAL INJ ONE (12:25)
--- NOTE | 2018-06-16 12:39 | NUR ---
CHECKED ON PT. OFF THE UNIT FOR SURGICAL PROCEDURE.
[2018-06-16] MEDS ORDERED: HYDROmorphone 1 MG/ML AMP IVP PRN (12:45)
[2018-06-16] MEDS ORDERED: ONDANSETRON 4 MG/2 ML VIAL IVP PRN (12:45)
[2018-06-16] MEDS: HYDROmorphone PFS 2 MG/ML SYR ONE ×2 (12:58→13:08)
[2018-06-16] MEDS ORDERED: BLOOD GLUCOSE MONITORING 1 DEV DEV FS SCH (13:00)
--- NOTE | 2018-06-16 14:00 | NUR ---
PT BACK TO ROOM FORM OR AFTER PROCEDURE DONE AT 1330. REPORT RECEIVED BY JUAN J SOSA. VS RECORDED BP 133/75, HR 107, T 97.8, 02 95%, RR 18. CHECKED ON PT. LYING ON HIS BED. STATES DOING OKAY. RAISED HIS BED TO 30 DEGREE, PUT ON O2 VIA NC 2LPM ORDERED. PT FAMILY AT BEDSIDE. STARTED TPN AGAIN. WILL CONTINUE TPN TODAY, AND WILL START CLEAR DIET FORM TOMORROW AM. CALL LIGHT WITHIN PT REACH. WILL CONTINUE TO MONITOR PT.
--- NOTE | 2018-06-16 14:51 | NUR ---
CHECKED ON PT. RECORDED VS , 144 AT THIS TIME. PT STATES FEELING COMFORTABLE. NO SIGN OF DISTRESS NOTED. PT O2 SAT 95% ON RA. WILL CONTINUE TO MONITOR PT.
[2018-06-16 16:00] VITALS: BP 115/65
--- NOTE | 2018-06-16 16:00 | NUR ---
CHECKED ON PT. LYING ON HIS BED. HOB AT 30 DEGREE. STATES SI COMFORTABLE. VS WITHIN NORMAL RANGE. PT STATES TO HAVE PAIN 6/10 WHEN HE TRIES TO MOVE, DENIES PAIN OTHERWISE. OXYGEN SATURATION 96% ON RA. INFORMED TO USE CALL LIGHT FOR ANY HELP. HELPED PT WITH HIS URINAL. EMPTIED KAYKAY DRAIN, 28 ML COLLECTED. CALL LIGHT WITHIN PT REACH. WILL CONTINUE TO MONITOR PT.
--- NOTE | 2018-06-16 18:00 | NUR ---
CHECKED ON PT. LYING ON HIS BED. DENIES ANY DISTRESS, APPEARS COMFORTABLE. FAMILY AT BEDSIDE . BS NOTED 144, NO INSULIN COVERAGE REQUIRED. PT IS ON CLEAR LIQUID DIET. STATES TOLERATED WELL. WILL CONTINUE TO MONITOR PT.
--- NOTE | 2018-06-16 19:20 | NUR ---
ENDORSED PT TO PM NURSE AT BEDSIDE. PT IN STABLE CONDITION.
--- NOTE | 2018-06-16 19:25 | NUR ---
RECEIVED FROM AM RN IN BED AWAKE AND ALERT. NO COMPLAINTS OF PAIN AT T HIS TIME. CALL LIGHT WITH IN REACH. TPN INFUSING WELL. IVF SITES INTACT AND NO INFILTRATION NOTED. KAYKAY TO RIGHT ABDOMEN INTACT AND WITH SEROUS SANGUINOUS OUTPUT. CARE PLANS FOR THE NIGHT DISCUSSED WITH HIM. S/P LAP CHOLECYSTECTOMY TODAY. NO BLEEDING TO SITES.
[2018-06-16 19:54] VITALS: BP 116/70
[2018-06-16] MEDS ORDERED: AMINO ACIDS IV SCH ×4 (20:00)
[2018-06-16] MEDS ORDERED: [UNRECOGNIZED DRUG - OTHER] IV SCH ×4 (20:00)
[2018-06-16] MEDS ORDERED: MULTIVITAMIN IV SCH ×4 (20:00)
[2018-06-16] MEDS ORDERED: DEXTROSE IV SCH ×4 (20:00)
[2018-06-16] MEDS: KETOROLAC 15 MG/ML VIAL IVP PRN (20:14)
[2018-06-16] MEDS: MEROPENEM 1,000 MG in NACL 0.9% 100 ML IV SCH (20:15)
--- NOTE | 2018-06-16 20:30 | NUR ---
PER MD LIAO MILK ROUTE DELIVERER TO PRESENT TPN BAG WILL BE LAST RT PT. DIET HAS ALREADY ADVANCED. NEXT BAG NEED NOT BE INFUSED. MERREM IV ABT INFUSING AT THIS TIME. TORADOL PAIN RELIEVER MEDICATED RT PER PT . HE HAS SLIGHT PAIN. MEDICATED REQUESTED.
--- NOTE | 2018-06-16 22:12 | NUR ---
MD GUTIERRES/INFECTION SPECIALIST IN HERE TO SEE PT.
[2018-06-17] VITALS (7 sets, daily range): BP systolic 123–147; BP diastolic 82–89
[2018-06-17] MEDS: KETOROLAC 15 MG/ML VIAL IVP PRN ×4 (02:11→23:12)
--- NOTE | 2018-06-17 04:00 | NUR ---
SLEEPING. NO RESTLESSNESS.
[2018-06-17] MEDS: CALCIUM CARBONATE 500 MG TAB.CHEW PO PRN (05:50)
[2018-06-17] MEDS: MEROPENEM 1,000 MG in NACL 0.9% 100 ML IV SCH ×3 (05:50→20:08)
[2018-06-17] MEDS: BLOOD GLUCOSE MONITORING 1 DEV DEV MC SCH ×2 (05:53)
--- NOTE | 2018-06-17 06:45 | NUR ---
PT. SLEPT WELL THIS SHIFT. ABLE TO VERBALIZE NEEDS WELL. NO BLEEDING TO LAP CHOLECYSTECTOMY SITE. ABLE TO USE CALL LIGHT FOR HELP. NEEDS MET. NO COMPLAINTS DONE.
[2018-06-17 07:26] LABS: BASOPHILS # (AUTO) 0.1 K/uL (0.00-0.22); BASOPHILS % (AUTO) 0.3 % (0.0-2.0); EOSINOPHILS % (AUTO) 0.1 % (0.0-4.0); HEMATOCRIT 30.3 % (36-52); HEMOGLOBIN 9.9 g/dL (12.0-18.0); LYMPHOCYTES # (AUTO) 1.2 K/uL (2.0-11.5); LYMPHOCYTES % (AUTO) 5.8 % (20.5-51.1); MEAN CORPUSCULAR HEMOGLOBIN 29 pg (27-31); MEAN CORPUSCULAR HGB CONC 33 g/dL (33-37); MEAN CORPUSCULAR VOLUME 89.6 fL (80-94); MONOCYTES # (AUTO) 1.5 K/uL (0.8-1.0); MONOCYTES % (AUTO) 7.1 % (1.7-9.3); NEUTROPHILS # (AUTO) 18.3 K/uL (1.8-7.7); NEUTROPHILS % (AUTO) 86.7 % (42.2-75.2); RED BLOOD CELL COUNT(AUTO) 3.38 MIL/uL (4.20-6.10); RED CELL DISTRIBUTION WIDTH 13.1 % (11.6-13.7); WHITE BLOOD COUNT (AUTO) 21.1 K/uL (4.8-10.8)
--- NOTE | 2018-06-17 07:32 | NUR ---
ENDORSED TO THE NEXT RN FOR CONTINUITY OF CARE. PT. IS AWAKE AND ABLE TO VERBALIZE NEEDS.
--- NOTE | 2018-06-17 07:33 | NUR ---
RECEIVED REPORT FROM PM NURSE AT BEDSIDE. PT LYING ON HIS BED. PT STATES HIS PAIN IS 6/10. INFORMED HIM THAT WILL SEE THE EMAR AND FOLLOW UP WITH HIS PIN MEDS. HAS IVF NS TKO , IV SITE LF A/C 20 G. HAS RT FA 20 G , SALINE LOCK. KAYKAY DRAIN IN PLACE. SURGICAL SITE INTACT AND PATENT. UPDATED BOARD. INFORMED TO USE CALL LIGHT FOR ANY HELP. WILL CONTINUE TO MONITOR PT.
[2018-06-17 07:44] LABS: ANION GAP 13.6 (8-16); CREATININE 0.8 mg/dL (0.7-1.3); POTASSIUM 4.6 mmol/L (3.5-5.1)
[2018-06-17 07:48] LABS: MAGNESIUM 2.3 mg/dL (1.8-2.4); PHOSPHORUS 4.5 mg/dL (2.5-4.9)
[2018-06-17] MEDS: PANTOPRAZOLE 40 MG INJ VIAL IVP SCH (08:15)
--- NOTE | 2018-06-17 08:24 | NUR ---
ADMINISTERED MEDS TO PT FOR PAIN. TOLERATED WELL. SIT HIM UP. CALL LIGHT WITHIN REACH. WILL REASSESS PAIN IN HOUR. INFORM TO USE CALL LIGHT FOR ANY HELP. WILL CONTINUE TO MONITOR PT.
[2018-06-17] MEDS: BUPIVACAINE-MPF/EPI 0.25% 30 ML VIAL INJ ONE (08:29)
[2018-06-17 08:53] LABS: PLATELET COUNT (AUTO) 850 K/uL (140-450)
[2018-06-17] MEDS: MENTHOL/METHYL 10%-15% 114 GM TUBE TP SCH (09:00)
[2018-06-17] MEDS: FLUTICASONE NASAL 50 MCG/ACTUATION 16 GM BTL NS SCH (09:00)
--- NOTE | 2018-06-17 10:00 | NUR ---
CHECKED ON PT , WAS SHIVERING. DENIES ANY DISCOMFORT . SHIVERING, ASKED IF HE NEEDS ANY WARM BLANKET. DENIES , STATES HE IS DOING GOOD AT THIS TIME. CHECKED BS 106. PT SLEEPING AT THIS TIME. AT BESIDE. INFORMED TO USE CALL LIGHT FOR ANY HELP . WILL CONTINUE TO MONITOR PT.
[2018-06-17] MEDS ORDERED: HYDROmorphone 1 MG/ML AMP IVP SCH (10:45)
--- NOTE | 2018-06-17 12:00 | NUR ---
CHECKED ON PT, LYING ON HIS BED. VS WITHIN NORMAL RANGE, STATES HE HAS TOLERABLE PAIN. NO SIGN OF DISTRESS NOTED. INFORMED HIM TO EAT SOME FOOD. TO CALL FOR ANY HELP , USING CALL LIGHT. ALL SAFETY MEASURE IN PLACE. WILL CONTINUE TO MONITOR PT.
--- NOTE | 2018-06-17 16:30 | NUR ---
PT SEEN BY DR JUNIOR. TALKING TO PT. VS RECORDED NORMAL. HAS ELEVATED HR. PT STATES TO HAVE PAIN COMING BACK AT ABDOMEN AND AT HIS BACK. INFORMED HIM WILL MEDICATE WITH PAIN MEDS. VERBALIZED UNDERSTANDING OF TEACHING. NO SIGN OF DISTRESS NOTED. WILL CONTINUE TO MONITOR PT.
--- NOTE | 2018-06-17 17:09 | NUR ---
CHECKED ON PT. ADMINISTERED TORADOL FOR JOSH. KAYKAY DRAIN EMPTIED 40 ML OUTPUT. FAMILY AT BEDSIDE. WILL CONTINUE TO MONITOR PT.
--- NOTE | 2018-06-17 19:15 | NUR ---
ENDORSED PT TO PM NURSE AT BEDSIDE. PT IN STABLE CONDITION.
--- NOTE | 2018-06-17 19:16 | NUR ---
RECEIVED REPORT FROM DAYSHIFT NURSE AT BEDSIDE FOR CONTINUITY OF CARE. PT AAOX4. PT IV NOTED LAC 20G SALINE LOCK AND RAC 20G SALINE LOCK. NO SOB NO S/S OF DISTRESS ON RA. KAKYAY DRAIN RIGHT UPPER ABD. 3X INCISION BANDAGE S/P LAP MARGARITO. BED LOWERED CALL LIGHT WITHIN REACH WILL CONTINUE TO MONITOR.
[2018-06-17] MEDS ORDERED: ALBUTEROL SULFATE/IPRATROPIU 3 ML SOL IH PRN (22:50)
[2018-06-17] MEDS: BENZOCAINE/MENTHOL 1 LOZ MM PRN (23:16)
--- NOTE | 2018-06-17 23:29 | NUR ---
PT AWAKE AND IN PAIN MEDICATED WILL CONTINUE TO MONITOR.
[2018-06-18] MEDS: ZOLPIDEM 5 MG TAB PO PRN ×2 (00:08→21:55)
--- NOTE | 2018-06-18 00:23 | NUR ---
ADMIN PAIN MED 1HR AGO. PAIN MED EFFECTIVE PT SLEEPING WILL CONTINUE TO MONITOR.
[2018-06-18 04:00] VITALS: BP 134/78
[2018-06-18] MEDS: MEROPENEM 1,000 MG in NACL 0.9% 100 ML IV SCH ×3 (04:47→20:08)
[2018-06-18] MEDS: KETOROLAC 15 MG/ML VIAL IVP PRN ×3 (05:25→18:58)
--- NOTE | 2018-06-18 07:27 | NUR ---
ENDORSED REPORT TO DAYSHIFT NURSE AT BEDSIDE FOR CONTINUITY OF CARE.
--- NOTE | 2018-06-18 07:28 | NUR ---
RECEIVED REPORT FROM GRINDER HARDBOARD NURSE AT BEDSIDE FOR CONTINUITY OF CARE. PT AAOX4. PT IV NOTED LAC 20G SALINE LOCK AND RAC 20G SALINE LOCK. NO SOB NO S/S OF DISTRESS ON RA. KAYKAY DRAIN RIGHT UPPER ABD. 3X INCISION BANDAGE S/P LAP MARGARITO. BED LOWERED CALL LIGHT WITHIN REACH WILL CONTINUE TO MONITOR.
--- NOTE | 2018-06-18 07:39 | NUR ---
PATIENT HAS BEEN SCREENED AND CATEGORIZED MODERATE NUTRITION RISK. PATIENT WILL BE SEEN WITHIN 3-5 DAYS OF ADMISSION. 06/19/18-06/21/18 CELY ROJAS MS, RDN Addendum: 06/18/18 at [address] Correction: PATIENT HAS BEEN SCREENED AND CATEGORIZED LOW NUTRITION RISK. PATIENT WILL BE SEEN WITHIN 7 DAYS OF ADMISSION. 06/23/18 CELY ROJAS MS, RDN
[2018-06-18 07:45] LABS: BASOPHILS # (AUTO) 0.1 K/uL (0.00-0.22); BASOPHILS % (AUTO) 0.4 % (0.0-2.0); EOSINOPHILS # (AUTO) 0.1 K/uL (0-0.4); EOSINOPHILS % (AUTO) 0.4 % (0.0-4.0); HEMATOCRIT 28.2 % (36-52); HEMOGLOBIN 9.3 g/dL (12.0-18.0); LYMPHOCYTES # (AUTO) 1.4 K/uL (2.0-11.5); LYMPHOCYTES % (AUTO) 7.6 % (20.5-51.1); MEAN CORPUSCULAR HEMOGLOBIN 29 pg (27-31); MEAN CORPUSCULAR HGB CONC 33 g/dL (33-37); MEAN CORPUSCULAR VOLUME 89.3 fL (80-94); MONOCYTES # (AUTO) 1.6 K/uL (0.8-1.0); MONOCYTES % (AUTO) 8.9 % (1.7-9.3); NEUTROPHILS # (AUTO) 15.2 K/uL (1.8-7.7); NEUTROPHILS % (AUTO) 82.7 % (42.2-75.2); RED BLOOD CELL COUNT(AUTO) 3.16 MIL/uL (4.20-6.10); RED CELL DISTRIBUTION WIDTH 13.1 % (11.6-13.7); WHITE BLOOD COUNT (AUTO) 18.3 K/uL (4.8-10.8)
[2018-06-18 07:55] LABS: ALBUMIN 2.2 g/dL (3.4-5.0); ANION GAP 14.3 (8-16); CARBON DIOXIDE 26.7 mmol/L (21-32); CREATININE 0.8 mg/dL (0.7-1.3); TOTAL BILIRUBIN 0.7 mg/dL (0.0-1.0)
[2018-06-18 08:00] VITALS: BP 121/83
--- NOTE | 2018-06-18 08:04 | NUR ---
RECEIVED CRITICAL VALUE OF PLT AT 798. VALUE IS HIGH BUT TRENDING DOWN SO IT WAS NOT REPORTED TO
[2018-06-18 08:05] LABS: PLATELET COUNT (AUTO) 798 K/uL (140-450)
[2018-06-18 08:10] LABS: MAGNESIUM 2.3 mg/dL (1.8-2.4); PHOSPHORUS 4.8 mg/dL (2.5-4.9)
[2018-06-18] MEDS: PANTOPRAZOLE 40 MG INJ VIAL IVP SCH (09:15)
[2018-06-18] MEDS: FLUTICASONE NASAL 50 MCG/ACTUATION 16 GM BTL NS SCH (09:16)
[2018-06-18] MEDS: MENTHOL/METHYL 10%-15% 114 GM TUBE TP SCH (09:16)
--- NOTE | 2018-06-18 10:10 | NUR ---
PT RESTING IN BED WITH SO AT BEDSIDE. ALL NEEDS MET AT T HIS TIME. WILL CONTINUE TO ROUND FREQUENTLY.
[2018-06-18 12:00] VITALS: BP 138/75
--- NOTE | 2018-06-18 12:37 | NUR ---
06/18/18 RD FOLLOW UP COMPLETED PLEASE REFER TO NUTRITION PROGRESS NOTE UNDER CARE ACTIVITY FOR ESTIMATED NUTRITION NEEDS. RD RECOMMENDATIONS: 1. CONTINUE ON CLEAR LIQUID DIET TOLERATED. 2. ADVANCE TO FULL LIQUID AND THEN TO REGULAR DIET TOLERATED. 3. RD WILL F/U 2-3 DAYS; HIGH RISK. ZELDA ROJAS MS, RDN
--- NOTE | 2018-06-18 14:37 | NUR ---
PT RESTING IN BED. NO COMPLAINTS OF PAIN. BED IN LOW POSITION. CALL LIGHT WITHIN REACH.
[2018-06-18 16:00] VITALS: BP 134/76
[2018-06-18] MEDS: BENZOCAINE/MENTHOL 1 LOZ MM PRN ×2 (17:22→21:55)
--- NOTE | 2018-06-18 17:26 | NUR ---
ENDORSED PT TO NURSE COORDINATOR FOR CONTINUITY OF CARE. PT IN STABLE CONDITION.
--- NOTE | 2018-06-18 17:27 | NUR ---
REPORT RECEIVED FROM AM NURSE AT BEDSIDE. PT IN STABLE CONDITION. AAOX4. INTRODUCED SELF TO PT. BOARD UPDATED. NO COMPLAINTS OF PAIN. MEDICATED AT 1858. NO SOB. AFEBRILE. IV SITE L AC 20G SL PATENT AND INTACT. SKIN WARM, DRY, AND NOT INTACT DUE TO SURGICAL WOUNDS ON THE ABDOMEN AND KAYKAY DRAIN ON THE RIGHT ABDOMEN. BED LOCKED IN LOW POSITION. CALL STOVER WITHIN REACH. SAFETY PRECAUTIONS IN PLACE. ALL NEEDS MET AT THIS TIME. WILL CONTINUE TO MONITOR.
[2018-06-18 20:00] VITALS: BP 127/65
--- NOTE | 2018-06-18 20:08 | NUR ---
JUNE GRANT AND BERNADINE. HEPARIN GIVEN SUBQ. PT TOLERATED WELL.
--- NOTE | 2018-06-18 21:55 | NUR ---
AMBIEN GIVEN PO FOR SLEEP. CEPACOL LOZENGE GIVEN FOR COUGH. PT TOLERATED WELL.
[2018-06-19] VITALS: BP 126/75
--- NOTE | 2018-06-19 | NUR ---
PT ASLEEP BUT AROUSEABLE. VS STABLE. NO S/S OF DISTRESS NOTED. ALL NEEDS MET AT THIS TIME.
[2018-06-19] MEDS: KETOROLAC 15 MG/ML VIAL IVP PRN ×2 (01:08→06:34)
--- NOTE | 2018-06-19 01:08 | NUR ---
TORADOL GIVEN FOR MODERATE PAIN. PT TOLERATED WELL.
--- NOTE | 2018-06-19 02:45 | NUR ---
PT AWAKE AND ALERT WATCHING TV IN BED SITTING UP. NO S/S OF DISTRESS NOTED. NO COMPLAINTS OF PAIN. NO SOB. AFEBRILE. ALL NEEDS MET AT THIS TIME. WILL CONTINUE TO MONITOR.
[2018-06-19 04:00] VITALS: BP 131/71
[2018-06-19] MEDS: MEROPENEM 1,000 MG in NACL 0.9% 100 ML IV SCH (04:07)
--- NOTE | 2018-06-19 04:07 | NUR ---
JUNE HUNG AND RUNNING. PT TOLERATING WELL.
--- NOTE | 2018-06-19 06:05 | NUR ---
KAYKAY WAS DRAINED OF 5ML SEROSANGUINOUS FLUID. KAYKAY WAS NEGATIVELY PRESSURIZED.
--- NOTE | 2018-06-19 06:34 | NUR ---
TORADOL GIVEN FOR 6/10 PAIN. PT TOLERATED WELL.
[2018-06-19 06:53] LABS: BASOPHILS # (AUTO) 0.1 K/uL (0.00-0.22); BASOPHILS % (AUTO) 0.6 % (0.0-2.0); EOSINOPHILS # (AUTO) 0.1 K/uL (0-0.4); EOSINOPHILS % (AUTO) 0.4 % (0.0-4.0); HEMATOCRIT 30.5 % (36-52); HEMOGLOBIN 9.8 g/dL (12.0-18.0); LYMPHOCYTES # (AUTO) 1.9 K/uL (2.0-11.5); LYMPHOCYTES % (AUTO) 11.2 % (20.5-51.1); MEAN CORPUSCULAR HEMOGLOBIN 29 pg (27-31); MEAN CORPUSCULAR HGB CONC 32 g/dL (33-37); MEAN CORPUSCULAR VOLUME 89.5 fL (80-94); MONOCYTES # (AUTO) 1.4 K/uL (0.8-1.0); MONOCYTES % (AUTO) 8.2 % (1.7-9.3); NEUTROPHILS # (AUTO) 13.8 K/uL (1.8-7.7); NEUTROPHILS % (AUTO) 79.6 % (42.2-75.2); RED BLOOD CELL COUNT(AUTO) 3.41 MIL/uL (4.20-6.10); WHITE BLOOD COUNT (AUTO) 17.3 K/uL (4.8-10.8)
--- NOTE | 2018-06-19 07:10 | NUR ---
REPORT GIVEN TO AM NURSE AT BEDSIDE. PT IN STABLE CONDITION.
[2018-06-19 07:21] LABS: PLATELET COUNT (AUTO) 840 K/uL (140-450)
[2018-06-19 07:27] LABS: ANION GAP 14.2 (8-16); CREATININE 0.9 mg/dL (0.7-1.3); POTASSIUM 4.2 mmol/L (3.5-5.1)
--- NOTE | 2018-06-19 07:28 | NUR ---
REPORT RECEIVED FROM PM NURSE CARRERA AT BEDSIDE. PT IN STABLE CONDITION. AAOX4. BOARD UPDATED. NO COMPLAINTS OF PAIN. NO SOB. AFEBRILE. IV SITE L AC 20G SL PATENT AND INTACT. SKIN WARM, DRY, AND NOT INTACT DUE TO SURGICAL WOUNDS ON THE ABDOMEN AND KAYKAY DRAIN ON THE RIGHT ABDOMEN. BED LOCKED IN LOW POSITION. CALL STOVER WITHIN REACH. SAFETY PRECAUTIONS IN PLACE. ALL NEEDS MET AT THIS TIME. WILL CONTINUE TO MONITOR.
[2018-06-19 07:37] LABS: MAGNESIUM 2.4 mg/dL (1.8-2.4); PHOSPHORUS 5.3 mg/dL (2.5-4.9)
[2018-06-19 08:00] VITALS: BP 131/80
[2018-06-19] MEDS: PANTOPRAZOLE 40 MG INJ VIAL IVP SCH (08:43)
[2018-06-19] MEDS: MENTHOL/METHYL 10%-15% 114 GM TUBE TP SCH (08:45)
[2018-06-19] MEDS: FLUTICASONE NASAL 50 MCG/ACTUATION 16 GM BTL NS SCH (08:45)
--- NOTE | 2018-06-19 08:45 | NUR ---
ADMINISTERED MORNING MEDS TO PT. PT TOLERATED MEDS WELL. ALL NEEDS MET AT THIS TIME. CALL LIGHT WITHIN REACH.
[2018-06-19 12:00] VITALS: BP 121/74
[2018-06-19] MEDS: HYDROcodone/APAP 10/325 MG 1 TAB TAB PO PRN ×2 (14:30→21:12)
--- NOTE | 2018-06-19 14:30 | NUR ---
PT COMPLAINED OF PAIN. NORCO GIVEN. AWAITING TO REASSESS FOR MED EFFECTIVENESS.
--- NOTE | 2018-06-19 15:40 | NUR ---
PT AMBULATING AROUND UNIT WITH AT SIDE. PT TOLERATING WELL. WILL CONTINUE TO MONITOR.
[2018-06-19 16:00] VITALS: BP 115/62
--- NOTE | 2018-06-19 19:26 | NUR ---
ENDORSED PT TO MENTAL TESTER SARY FOR CONTINUITY OF CARE. PT IN STABLE CONDITION AT THIS TIME.
--- NOTE | 2018-06-19 19:27 | NUR ---
RECEIVED BEDSIDE REPORT FROM AM NURSE . PT IN STABLE CONDITION.AMBULATORY AAOX4. TELE UNIT. 10/05 PAIN NOTED ON LEFT SIDE OF ABDOMEN. NO SOB. AFEBRILE. IV SITE L AC 20G PATENT AND INTACT. SKIN WARM, DRY, AND SURGICAL WOUNDS ON THE ABDOMEN WITH DRESSING INTACT AND KAYKAY DRAIN ON THE RIGHT ABDOMEN INTACT. BED PLACED AT LOWEST POSITION. CALL LIGHT PLACED WITHIN REACH. SAFETY PRECAUTIONS IN PLACE. ALL NEEDS MET AT THIS TIME. WILL CONTINUE TO MONITOR.
[2018-06-19 20:00] VITALS: BP 113/65
--- NOTE | 2018-06-19 20:00 | NUR ---
PT'S KAYKAY DRAIN W/ ORDERS FROM DR. LEY TO TAKE IT OUT.
--- NOTE | 2018-06-19 21:07 | NUR ---
PT PAIN AT 10 THIS TIME. WILL ADMINISTER NORCO.
[2018-06-19] MEDS: ZOLPIDEM 5 MG TAB PO PRN (21:12)
--- NOTE | 2018-06-19 21:27 | NUR ---
PT'S KAYKAY DRAIN REMOVED PT TOLERATED PROCEDURE WELL.NO BLEEDING NOTED. DRESSED WOUND WITH BANDAGE W/ CHARGE NURSE AT BEDSIDE.
[2018-06-20] VITALS: BP 112/65
[2018-06-20] MEDS: KETOROLAC 15 MG/ML VIAL IVP PRN (02:05)
--- NOTE | 2018-06-20 02:07 | NUR ---
PT C/O OF THROBBING PAIN 6/10 ON POST REMOVAL OF KAYKAY DRAIN TUBE, GIVEN TORADOL.
[2018-06-20 04:00] VITALS: BP 129/74
--- NOTE | 2018-06-20 05:05 | NUR ---
PT SAID SLEEP PATTERN ALTERED BUT ABLE TO DOZE OFF FROM TIME TO TIME. PT NO RESPIRATORY DISTRESS AND NO COMPLAINTS OF PAIN AT THIS TIME. WILL CONTINUE TO MONITOR
[2018-06-20] MEDS: HYDROcodone/APAP 10/325 MG 1 TAB TAB PO PRN (06:03)
[2018-06-20 07:15] LABS: BASOPHILS # (AUTO) 0.1 K/uL (0.00-0.22); BASOPHILS % (AUTO) 0.6 % (0.0-2.0); EOSINOPHILS # (AUTO) 0.2 K/uL (0-0.4); EOSINOPHILS % (AUTO) 1.1 % (0.0-4.0); HEMATOCRIT 30.1 % (36-52); HEMOGLOBIN 9.8 g/dL (12.0-18.0); LYMPHOCYTES # (AUTO) 2.5 K/uL (2.0-11.5); LYMPHOCYTES % (AUTO) 17.8 % (20.5-51.1); MEAN CORPUSCULAR HEMOGLOBIN 29 pg (27-31); MEAN CORPUSCULAR HGB CONC 33 g/dL (33-37); MEAN CORPUSCULAR VOLUME 89.5 fL (80-94); MONOCYTES % (AUTO) 7.3 % (1.7-9.3); NEUTROPHILS # (AUTO) 10.1 K/uL (1.8-7.7); NEUTROPHILS % (AUTO) 73.2 % (42.2-75.2); RED BLOOD CELL COUNT(AUTO) 3.37 MIL/uL (4.20-6.10); RED CELL DISTRIBUTION WIDTH 13.1 % (11.6-13.7); WHITE BLOOD COUNT (AUTO) 13.9 K/uL (4.8-10.8)
[2018-06-20 07:16] LABS: ANION GAP 12.7 (8-16); CARBON DIOXIDE 29.2 mmol/L (21-32); CREATININE 0.8 mg/dL (0.7-1.3); POTASSIUM 3.9 mmol/L (3.5-5.1)
[2018-06-20 07:20] LABS: MAGNESIUM 2.2 mg/dL (1.8-2.4); PHOSPHORUS 5.1 mg/dL (2.5-4.9)
--- NOTE | 2018-06-20 07:20 | NUR ---
PT ENDORSED TO AM SHIFT. PAIN NOT IN PAIN AT THIS TIME PER PT. PT IN STABLE CONDITION
--- NOTE | 2018-06-20 07:21 | NUR ---
RECEIVED REPORT FROM STONE POLISHER NURSE. PT IN STABLE CONDITION. RESPIRATIONS EVEN AND UNLABORED. IV INTACT AND PATENT. SAFETY MEASURES IN PLACE. BED IN LOW POSITION. WILL CONTINUE TO MONITOR.
[2018-06-20 07:52] LABS: PLATELET COUNT (AUTO) 781 K/uL (140-450)
[2018-06-20] MEDS ORDERED: HYDR-5092 PO (08:22)
[2018-06-20] MEDS ORDERED: DOCU-299 PO (08:22)
[2018-06-20] MEDS: PANTOPRAZOLE 40 MG INJ VIAL IVP SCH (08:35)
[2018-06-20] MEDS: FLUTICASONE NASAL 50 MCG/ACTUATION 16 GM BTL NS SCH (08:48)
[2018-06-20] MEDS: MENTHOL/METHYL 10%-15% 114 GM TUBE TP SCH (08:49)
--- NOTE | 2018-06-20 08:49 | NUR ---
GAVE ORDERED DUE MEDICATIONS. PT TOLERATED WELL. WILL CONTINUE TO MONITOR.
--- NOTE | 2018-06-20 11:30 | NUR ---
GAVE PT DISCHARGE INSTRUCTIONS AND RX PRESCRIPTIONS ALL QUESTIONS ANSWERED AT THIS TIME. PT STATED UNDERSTANDING OF DISCHARGE INSTRUCTION. IV REMOVED, LUMEN INTACT. PT WHEELED TO LOBBY IN WHEELCHAIR WHERE FAMILY WAS WAITING WITH VEHICLE. ID BAND REMOVED. PT IN STABLE CONDITION.
== END 2018-06-20 11:32 | disposition home or self-care (01) | DRG 853 ==
LOC: MED 21:23 → MTU 23:15 → MIC 06-03 22:05 → MTU 06-04 03:34 → MIC 06-04 03:43 → MTU 06-14 20:02
PROVIDERS: ADMIT General Practice; ATTEND General Practice
PROC: 0F798ZZ Dilation of Common Bile Duct, Via Natural or Artificial Opening Endoscopic (ICD-10-PCS; 2018-06-04)
PROC: 0F9430Z Drainage of Gallbladder with Drainage Device, Percutaneous Approach (ICD-10-PCS; 2018-06-05)
PROC: 0F9G3ZX Drainage of Pancreas, Percutaneous Approach, Diagnostic (ICD-10-PCS; principal; 2018-06-13)
PROC: 0FT44ZZ Resection of Gallbladder, Percutaneous Endoscopic Approach (ICD-10-PCS; 2018-06-16)
PROC: BF141ZZ Fluoroscopy of Gallbladder, Bile Ducts and Pancreatic Ducts using Low Osmolar Contrast (ICD-10-PCS; 2018-06-16)
PROC: 0FP4X0Z Removal of Drainage Device from Gallbladder, External Approach (ICD-10-PCS; 2018-06-16)
DX: A41.9 Sepsis, unspecified organism (principal); K85.10 Biliary acute pancreatitis without necrosis or infection; K85.22 Alcohol induced acute pancreatitis with infected necrosis; N17.0 Acute kidney failure with tubular necrosis; E43 Unspecified severe protein-calorie malnutrition; K80.00 Calculus of gallbladder with acute cholecystitis without obstruction; K86.3 Pseudocyst of pancreas; J90 Pleural effusion, not elsewhere classified; E87.6 Hypokalemia; E83.39 Other disorders of phosphorus metabolism; E78.5 Hyperlipidemia, unspecified; F10.10 Alcohol abuse, uncomplicated; F12.90 Cannabis use, unspecified, uncomplicated; Z90.49 Acquired absence of other specified parts of digestive tract; R65.20 Severe sepsis without septic shock; F43.9 Reaction to severe stress, unspecified; D47.3 Essential (hemorrhagic) thrombocythemia; E83.42 Hypomagnesemia; Y90.0 Blood alcohol level of less than 20 mg/100 ml; I10 Essential (primary) hypertension; Z71.51 Drug abuse counseling and surveillance of drug abuser
CPT/HCPCS: 36415; 36600; 71045; 74150; 74330; 75989; 76604; 76705; 77012; 78445; 80048; 80053; 80076; 80305; 81001; 82150; 82272; 82374; 82803; 82948; 83036; 83605; 83615; 83625; 83690; 83735; 83880; 84100; 84436; 84439; 84443; 84479; 84484; 85025; 85610; 85730; 86704; 86706; 86708; 86709; 86803; 86886; 86900; 86901; 87040; 87070; 87075; 87081; 87086; 87205; 87340; 93005; 94640; 96365; 96367; 96372; 96375; 97116; 97530; 99291; A9153; C1729; C1769; C1773; C1887; C9113; G0482; J0330; J0610; J0690; J1100; J1170; J1200; J1644; J1815; J1885; J1940; J1956; J2001; J2060; J2185; J2250; J2270; J2405; J2543; J2704; J2710; J3010; J3475; J3480; J3490; J7030; J7042; J7060; J7120; J7620; Q0092; Q9965; Q9967